=== PATIENT | male | born 1950 | race Caucasian/White ===

== ENCOUNTER 2021-02-07 17:04 | Observation (INO) | payer MEDICARE, SELFPAY ==
[2021-02-07] VITALS (12 sets, daily range): BP systolic 112–139; BP diastolic 59–83; PULSE 61–78; RESP 11–20; TEMP 36.7–37.1; O2SAT 96–100; BMI 21.7; BMI 22.1
--- NOTE | 2021-02-07 18:18 | ED.GENADULT ---
HPI - General Adult General Chief complaint: Abdominal Pain Stated complaint: states hernia Time Seen by Provider: 02/07/21 17:58 Source: patient Mode of arrival: Ambulatory Limitations: no limitations History of Present Illness HPI narrative: Patient is a 70-year-old male here for evaluation of what he states is a hernia that he cannot push back in. He has had hernia in his right inguinal area for upper to 25 years. He states that it is never caused him any problems. Last week he stated that it was protruding and was uncomfortable to the touch but he was able to push it back in after some effort. He had no further discomfort with that until this morning when it again was protruding and he was unable to push it back in. He now has generalized abdominal discomfort. No fevers. No vomiting. No problems urinating. No diarrhea. No constipation. Related Data Home Medications Medication Instructions Recorded Confirmed No Known Home Medications 02/08/21 02/08/21 Allergies Allergy/AdvReac Type Severity Reaction Status Date / Time No Known Drug Allergies Allergy Verified 02/07/21 18:42 Review of Systems Constitutional Constitutional: Denies fever(s) Gastrointestinal Gastrointestinal: Reports abdominal pain, Denies change in bowel habits, Denies nausea and Denies vomiting Genitourinary Genitourinary: Denies dysuria and Denies urinary hesitancy Genitourinary: Denies dysuria and Denies urinary hesitancy Musculoskeletal Musculoskeletal: Reports system reviewed and no additional complaints, except as documented Integumentary/Breasts Skin/Breast: Reports system reviewed and no additional complaints, except as documented Hematologic/Lymphatic On Anticoagulants: No Allergic/Immunologic Allergic/Immunologic: Reports system reviewed and no additional complaints, except as documented Patient History Medical History Patient denies medical problems Surgical History (Updated 02/07/21 @ 19:08 by Som He MD) History of tonsillectomy Social History household members: none Smoking Status: Never smoker Smoking Status: Never smoker alcohol intake frequency: holidays/special occasions only Substance Use Type: does not use Exam Initial Vital Signs Initial Vital Signs: Vital Signs Temperature 98.1 F 02/07/21 17:38 Pulse Rate 70 02/07/21 17:38 Respiratory Rate 17 02/07/21 17:38 Blood Pressure 128/77 02/07/21 17:38 Pulse Oximetry 98 02/07/21 17:38 Const General: cooperative and comfortable Limitations: mental status not altered HENMT Head: normal to inspection and normocephalic Resp Effort & Inspection: normal respiratory effort Auscultation: clear to auscultation bilaterally Cardio Rate: regular rate Rhythm: regular rhythm GI Inspection: non-distended Palpation: soft and tender (Diffuse tenderness) Other: Patient did have an obvious bulge in the right inguinal area that was tender to palpation Skin Lesions: no lesions Rashes: no rashes Extrem General: normal to inspection and capillary refill normal Psych Appearance: grossly normal and well kempt Course Orders Ordered: ED Orders 02/07/21 18:30 Basic Metabolic Panel Stat Complete Blood Count AUTO DIFF Stat 02/07/21 18:43 COVID19 - ADMIT (M[employer]MENT CAPTAIN swab/PCR) Stat Acetaminophen (Acetaminophen 325 Mg Tablet) 650 mg PO Q6HR PRN PRN Reason: Pain, Mild (1-3) Gabapentin (Gabapentin 300 Mg Capsule) 300 mg PO BID [facility] Last Admin: 02/08/21 01:16 Dose: 300 mg Documented by: LEE Lactated Ringer's (Lactated Ringers) 1,000 mls @ 80 mls/hr IV CONT [facility] Last Admin: 02/07/21 23:50 Dose: 80 mls/hr Documented by: NAHOMY Morphine Sulfate (Morphine 4 Mg/Ml Inj) 4 mg IV Q2H PRN PRN Reason: Pain, Severe (7-10) Naloxone HCl (Naloxone 0.4 Mg/Ml Vial) 0.2 mg IV Q2MIN PRN PRN Reason: Opiate Reversal Ondansetron HCl (Ondansetron 4 Mg/2 Ml Inj) 4 mg IV Q4HR PRN PRN Reason: Nausea And Vomiting Oxycodone HCl (Oxycodone Ir 5 Mg Tablet) 10 mg PO Q6HR PRN PRN Reason: Pain, Moderate (4-6) Discontinued Medications Acetaminophen (Acetaminophen 325 Mg Tablet) 975 mg PO NOW ONE Stop: 02/07/21 20:59 Last Admin: 02/08/21 01:15 Dose: Not Given Documented by: NAHOMY Bupivacaine HCl (Bupivacaine 0.5% (Pf) Vial) 30 ml INJ NOW ONE Stop: 02/07/21 21:10 Last Admin: 02/07/21 21:10 Dose: 30 ml Documented by: TAMMI Fentanyl (Fentanyl 100 Mcg/2 Ml Inj) 0 mcg IV Q5MIN PRN PRN Reason: Pain, Severe (7-10) Gabapentin (Gabapentin 300 Mg Capsule) 300 mg PO BID [facility] Last Admin: 02/08/21 01:16 Dose: Not Given Documented by: NAHOMY Hydromorphone HCl (Hydromorphone 2 Mg Inj) 0 mg IV Q5MIN PRN PRN Reason: Pain, Mild (1-3) Last Admin: 02/07/21 22:48 Dose: 0.25 mg Documented by: CHARLEEN Lactated Ringer's (Lactated Ringers) 1,000 mls @ 42 mls/hr IV CONT [facility] Last Infusion: 02/07/21 23:13 Dose: 42 mls/hr Documented by: Admin: 02/07/21 21:54 Dose: 42 mls/hr Documented by: Infusion: 02/07/21 21:54 Dose: 42 mls/hr Documented by: Admin: 02/07/21 20:07 Dose: 42 mls/hr Documented by: CHARLEEN Cefotetan Disodium 2 gm/ (Sodium Chloride) 100 mls @ 200 mls/hr IV NOW ONE Stop: 02/07/21 20:26 Last Infusion: 02/07/21 21:00 Dose: 0 mls/hr Documented by: Admin: 02/07/21 20:55 Dose: 200 mls/hr Documented by: BILL Lactated Ringer's (Lactated Ringers) 1,000 mls @ 120 mls/hr IV CONT [facility] Last Admin: 02/08/21 01:16 Dose: Not Given Documented by: NAHOMY Ondansetron HCl (Ondansetron 4 Mg/2 Ml Inj) 4 mg IV NOW PRN PRN Reason: Nausea And Vomiting Last Admin: 02/07/21 22:48 Dose: 4 mg Documented by: CHARLEEN Oxycodone HCl (Oxycodone Ir 5 Mg Tablet) 5 mg PO [place]OW PRN PRN Reason: Mild or moderate pain Last Admin: 02/07/21 23:12 Dose: 5 mg Documented by: Admin: 02/07/21 22:56 Dose: 5 mg Documented by: CHARLEEN Vital Signs Vital signs: Vital Signs - 8 hr 02/07/21 17:38 Temperature 98.1 F Pulse Rate 70 Respiratory Rate 17 Blood Pressure 128/77 Pulse Oximetry 98 Medical Decision Making Lab Data Lab results reviewed: Yes I reviewed the patient's lab results. Result diagrams: 02/07/21 18:30 02/07/21 18:30 Labs: Lab Results 02/07/21 02/07/21 Range/Units 18:30 18:30 WBC 8.2 (4.5-11.0) X10^3/uL RBC 4.50 (4.5-5.9) X10^6/uL Hgb 14.1 (13.5-17.5) g/dL Hct 42.1 (41-53) % MCV 93.5 (80-100) fL MCH 31.2 (26-34) PG MCHC 33.4 (30-36) % RDW 13.5 (11.6-14.8) % Plt Count 214 (150-400) X10^3/uL Neut % (Auto) 78.8 H (50-75) % Lymph % (Auto) 13.8 L (25-40) % [place] % (Auto) 6.7 (3-14) % Eos % (Auto) 0.3 L (2-4) % Baso % (Auto) 0.4 (0-2) % Neut # (Auto) 6500 (3516-9336) /uL Lymph # (Auto) 1100 (3714-4910) /uL [place] # (Auto) 600 (0-900) /uL Eos # (Auto) 0 (0-450) /uL Baso # (Auto) 0 (0-100) /uL Sodium 138 (137-145) mmol/L Potassium 4.7 (3.4-5.1) mmol/L Chloride 103 (98-107) mmol/L Carbon Dioxide 27 (22-32) mmol/L BUN 20 (9-20) mg/dL Creatinine 0.74 (0.66-1.25) mg/dL Estimated GFR > 60.0 (>60) mL/min BUN/Creatinine Ratio 27.0 H (6-22) Glucose 97 (80-110) mg/dL Calcium 9.1 (8.4-10.2) mg/dL MDM Narrative Medical decision making narrative: Patient does have an obvious right inguinal hernia initially was the size of a baseball and I was able to reduce it to about the size of a golf ball however was unable to reduce it any further than this. I did discuss the case with Dr. He on-call for General surgery who evaluated the patient in the emergency department and will take to the operating room for fixation. Discharge Plan Departure Patient Disposition: Admitted as Observation Clinical Impression: Incarcerated inguinal hernia, unilateral Admit Date/Time: 02/07/21 18:35 Admit Provider: Som He
[2021-02-07 18:42] LABS: Add Manual Diff / Slide Review NO; Basophils Absolute Auto 0 /uL (0-100); Basophils Percent Auto 0.4 % (0-2); Eosinophils Absolute Auto 0 /uL (0-450); Eosinophils Percent Auto 0.3 % (2-4); Hematocrit 42.1 % (41-53); Hemoglobin 14.1 g/dL (13.5-17.5); Lymphocytes Absolute Auto 1100 /uL (1100-4500); Lymphocytes Percent Auto 13.8 % (25-40); Mean Corpuscular HGB Conc 33.4 % (30-36); Mean Corpuscular Hemoglobin 31.2 PG (26-34); Mean Corpuscular Volume 93.5 fL (80-100); Monocytes Absolute Auto 600 /uL (0-900); Monocytes Percent Auto 6.7 % (3-14); Neutrophils Absolute Auto 6500 /uL (1500-7000); Neutrophils Percent Auto 78.8 % (50-75); Platelet Count 214 X10^3/uL (150-400); Red Cell Distribution Width 13.5 % (11.6-14.8); White Blood Cell Count 8.2 X10^3/uL (4.5-11.0)
[2021-02-07 18:59] LABS: Blood Urea Nitrogen 20 mg/dL (9-20); Calcium 9.1 mg/dL (8.4-10.2); Carbon Dioxide 27 mmol/L (22-32); Chloride 103 mmol/L (98-107); Estimated Glomerular Filt Rate > 60.0 mL/min (>60); Glucose 97 mg/dL (80-110); HEMOLYSIS < 15 (0-50); Potassium 4.7 mmol/L (3.4-5.1); Sodium 138 mmol/L (137-145)
--- NOTE | 2021-02-07 19:06 | P.HP_ITS ---
History of Present Illness History of Present Illness Date Patient Seen: 02/07/21 Time Patient Seen: 19:00 Chief complaint: states hernia Narrative: Patient is a gentleman who has a chronic right inguinal hernia. Last week it popped out and was quite painful after he lifted something heavy. He was able to reduce it however in his pain went away it popped out again today earlier and he has not been able to reduce it. He ultimately came to the emergency room and to physicians have been unable to reduce it. Is quite tender on attempts reduction. There is no overlying redness. His stomach feels upset and cramping. No vomiting. Last p.o. was meal was this morning. Patient History Surgical History (Updated 02/07/21 @ 19:08 by Som He MD) History of tonsillectomy Family & Social History Safety & Behavioral: Feels Safe in Current Yes Environment Been Physically Hurt or No Threatened By a Person Tobacco & Substance use: Smoking Status Never smoker alcohol intake frequency holiday/special occasion Substance Use Type does not use Meds Home Medications and Allergies Home Medications Medication Instructions Recorded Confirmed Type SULFAMETHOX/TRIMETH 1 tab PO #0 02/06/07 History (SULFAMETHOX/TRIMETH SS) Allergies Allergy/AdvReac Type Severity Reaction Status Date / Time No Known Drug Allergies Allergy Verified 02/07/21 18:42 Review of Systems Review of Systems Narrative: Patient denies any visual difficulties double vision no cough cold. He had asthma as a child. No heart problems or chest pain. No black or bloody bowel movements. Last colonoscopy in the last few years. Fairly recent. No dysuria or hematuria. No seizures or blackouts. No anxiety or depression. No unusual bruising or bleeding. He does not see a doctor regularly but it considers himself fairly healthy. Exam Vital Signs (past 8 hours): - 02/07/21 17:38 Temperature 98.1 F Pulse Rate 70 Respiratory Rate 17 Blood Pressure 128/77 Pulse Oximetry 98 Oxygen Delivery Method Room Air Narrative Exam Narrative: Cooperative thin gentleman in no apparent distress. His eyes are nonicteric. Oral mucosa is pink moist. Teeth are intact. Dental work noted. No nodes in the neck supraclavicular areas. Trachea is midline mobile. Lungs are clear to auscultation without rales or rhonchi. Equal percussion. Heart regular rate and rhythm without murmur gallop. No heave lift or thrill. Abdomen is scaphoid soft nontender except in the right groin. Patient has an incarcerated right inguinal hernia. I cannot get it to reduce any further than it already has been reduced to the size of about a golf ball. It is tender with an attempt. There is no overlying redness. The testicle is nontender. Patient is alert and oriented. Objective Labs Result Diagrams: 02/07/21 18:30 02/07/21 18:30 Labs: Laboratory Results - last 24 hr 02/07/21 02/07/21 18:30 18:30 WBC 8.2 RBC 4.50 Hgb 14.1 Hct 42.1 MCV 93.5 MCH 31.2 MCHC 33.4 RDW 13.5 Plt Count 214 Neut % (Auto) 78.8 H Lymph % (Auto) 13.8 L [place] % (Auto) 6.7 Eos % (Auto) 0.3 L Baso % (Auto) 0.4 Neut # (Auto) 6500 Lymph # (Auto) 1100 [place] # (Auto) 600 Eos # (Auto) 0 Baso # (Auto) 0 Sodium 138 Potassium 4.7 Chloride 103 Carbon Dioxide 27 BUN 20 Creatinine 0.74 Estimated GFR > 60.0 BUN/Creatinine Ratio 27.0 H Glucose 97 Calcium 9.1 Assessment & Plan Assessment & Plan narrative: Patient is a gentleman with a right inguinal hernia that is incarcerated and quite tender. I am concerned about ischemic or strangulated contents. I have discussed the operation with him. Risks of bleeding infection injury to nerves vas deferens blood supply the testicle I and the potential need to resect bowel were all discussed. he appears to understand wishes to proceed
[2021-02-07 19:40] LABS: COVID19 - ADMIT (NP swab/PCR) Negative (Negative)
--- NOTE | 2021-02-07 19:50 | PC.NURSE ---
Report given to CHEMICAL COMPOUNDER and Acute Care RN.
[2021-02-07] MEDS: LACTATED RINGERS 1,000 ML 42 ML IV ×2 (20:07→21:54)
--- NOTE | 2021-02-07 20:26 | PM.PREOP ---
Pre-operative Note COVID-19 COVID-19 status: Negative Result date/Date tested (Pos, Neg/Pending): 02/07/21 Interval Note History & Physical reviewed/Exam performed by Physician: Yes Changes to H&P: No
[2021-02-07] MEDS: CEFOTETAN 2 GM in SODIUM CHLORIDE 0.9% 100 ML 200 ML IV (20:55)
--- NOTE | 2021-02-07 21:02 | SUR.OPER ---
Supine on padded OR bed, head on pillow, arms secured on padded arm boards at <90 degrees abduction, legs uncrossed, safety belt at thigh, tape over blanket over lower legs.
[2021-02-07] MEDS: BUPIVACAINE 0.5% (PF) VIAL 30 ML INJ (21:10)
--- NOTE | 2021-02-07 22:41 | PM.OP.1 ---
Operative Date/Time/Diagnoses Date of procedure: 02/07/21 Time of procedure: 22:41 Pre-op diagnosis: Incarcerated right inguinal hernia Post-op diagnosis: same (Small bowel incarcerated in the hernia. Appeared to be viable.) Procedure & Clinicians Procedure: Repair using modified shoulder ice technique Same procedure as scheduled: Yes Indications: Patient with acutely incarcerated hernia at risk of strangulation. Surgeon: Som He Click Yes if Unassisted: Yes Anesthesia Type: General Operative Notes Findings: Small bowel trapped in a hernia sac with a tight neck. Initially a bit dusky but once the tight ring was relaxed the bowel normalized in color. Closure Type: primary Specimen(s): none sent Prosthetic devices, grafts, tissues, transplants, or devices: None Estimated Blood Loss (mL): 20 Blood products transfused: none Procedure in detail: The patient was placed supine on the operating room table and underwent general LMA anesthesia. He was prepped and draped in the usual fashion. A transverse incision was made overlying the right internal ring and carried down to the level of the external oblique. Because of the distortion of the hernia the cord structures were actually below the incision. I opened the cord cremaster and dissected through what appeared to be the hernia sac. I readily identified slightly discolored small bowel. I attempted to reduce it but the sac and a very tight neck. I dissected along the sac until I found the constriction and incised it. The bowel color changed to more normal and appeared to be viable. I was able to reduce the small intestine at that point. I lifted the cord structures off of the floor and placed a Ata around them. The external oblique was then opened parallel with its fibers through the external ring. The sac was from surrounding structures and dissected proximally. I transected it leaving a solid amount of sac remaining on the cord to prevent injury to the vascular supply of the testicle. Once I dissected the sac clear of structures I ligated it with 2-0 silk at the level the deep epigastric vessels. I transected the sac distal to the ties and removed the sac. I love the stump to retract after injecting a small amount of local just below the ties. The cremaster was then closed with a running 3-0 Vicryl suture. The floor was examined and was found to be weekend in its center but intact laterally and medially. I decided to perform a modified shoulder ice repair. The floor was opened from near the internal ring to near the pubic tubercle. A 2 0 Prolene suture was placed at the pubic tubercle and tied. This suture was then run incorporating the ileopubic tract to the underside of the cut floor medially. This suture was run until a new internal ring was formed which was snug but not tight against the cord structures. The same suture was then run back to the pubic tubercle suturing the edge of the inguinal ligament and lateral ileopubic tract to the cut edge of the medial floor( essentially to the cut edge of thetransversalis.) The repair appeared to be strong and the in terminal ring did not strangulate the cord structures.. The external oblique was closed with a running 3 0 Vicryl. The subcu was closed with interrupted 3 0 Vicryl. The skin was closed with a running 4 0 Vicryl subcuticular stitch and Steri-Strips. Dressing was applied, the patient was awakened, and the patient was taken to the recovery area in good condition. Complications: none Post-operative Condition: stable Disposition: PACU
[2021-02-07] MEDS: ONDANSETRON 4 MG/2 ML INJ IV (22:48)
[2021-02-07] MEDS: HYDROMORPHONE 2 MG INJ IV (22:48)
[2021-02-07] MEDS: OXYCODONE IR 5 MG TABLET PO ×2 (22:56→23:12)
--- NOTE | 2021-02-07 23:45 | PC.ADMIT ---
[address] [place] [address] Admission Note: Patient arrived to the unit at 2327 from PACU via bed. Patient is A&O and denies pain at this time. Patient's brother was in room with him. Patient was oriented to room, call light, educated to call when needing to get out of bed, and call light was left within reach. The patient,Shad Villanueva,70 y/o, was given written information regarding hospital policies, unit procedures and contact persons. Patient's smoking status: Never smoker. Vital Signs - 8 hr 02/07/21 18:30 02/07/21 19:49 02/07/21 20:03 Temperature 98.1 F Pulse Rate 68 72 78 Respiratory Rate 17 18 20 Blood Pressure 127/81 132/83 138/77 Pulse Oximetry 97 99 96 02/07/21 22:34 02/07/21 22:39 02/07/21 22:49 Temperature 98.4 F Pulse Rate 64 61 71 Respiratory Rate 14 15 12 Blood Pressure 112/59 L 119/71 115/70 Pulse Oximetry 100 99 97 02/07/21 22:55 02/07/21 22:59 02/07/21 23:04 Temperature Pulse Rate 72 73 72 Respiratory Rate 11 L 17 16 Blood Pressure 125/68 128/64 122/78 Pulse Oximetry 98 96 97 02/07/21 23:10 Temperature Pulse Rate 72 Respiratory Rate 15 Blood Pressure 132/82 Pulse Oximetry 97
[2021-02-07] MEDS: LACTATED RINGERS 1,000 ML 80 ML IV (23:50)
[2021-02-08 00:10] VITALS: BP 126/73; PULSE 81; RESP 16; TEMP 37.1; O2SAT 94
[2021-02-08 00:40] VITALS: BP 122/71; PULSE 79; RESP 16; TEMP 37.3; O2SAT 96
[2021-02-08] MEDS: GABAPENTIN 300 MG CAPSULE PO ×2 (01:16→08:48)
[2021-02-08 01:45] VITALS: BP 123/73; PULSE 74; RESP 16; TEMP 37; O2SAT 96
[2021-02-08 02:45] VITALS: BP 121/68; PULSE 79; RESP 16; TEMP 37; O2SAT 96
[2021-02-08 05:33] LABS: Add Manual Diff / Slide Review NO; Basophils Absolute Auto 0 /uL (0-100); Basophils Percent Auto 0.2 % (0-2); Eosinophils Absolute Auto 0 /uL (0-450); Hemoglobin 13.3 g/dL (13.5-17.5); Lymphocytes Absolute Auto 600 /uL (1100-4500); Lymphocytes Percent Auto 6.7 % (25-40); Mean Corpuscular HGB Conc 33.3 % (30-36); Mean Corpuscular Hemoglobin 30.9 PG (26-34); Mean Corpuscular Volume 92.9 fL (80-100); Monocytes Absolute Auto 300 /uL (0-900); Monocytes Percent Auto 3.6 % (3-14); Neutrophils Absolute Auto 7500 /uL (1500-7000); Neutrophils Percent Auto 89.5 % (50-75); Platelet Count 201 X10^3/uL (150-400); Red Blood Cell Count 4.31 X10^6/uL (4.5-5.9); Red Cell Distribution Width 13.5 % (11.6-14.8); White Blood Cell Count 8.4 X10^3/uL (4.5-11.0)
[2021-02-08 07:00] VITALS: BP 120/65; PULSE 69; RESP 17; TEMP 36.8; O2SAT 96
--- NOTE | 2021-02-08 10:37 | PM.DS.1 ---
History of Present Illness History of Present Illness Chief complaint: states hernia Narrative: Patient is a gentleman who has a chronic right inguinal hernia. Last week it popped out and was quite painful after he lifted something heavy. He was able to reduce it however in his pain went away it popped out again today earlier and he has not been able to reduce it. He ultimately came to the emergency room and to physicians have been unable to reduce it. Is quite tender on attempts reduction. There is no overlying redness. His stomach feels upset and cramping. No vomiting. Last p.o. meal was this morning. Discharge Providers Provider Date of admission: 02/07/21 18:35 Discharge Date: 02/08/21 Consults: 02/07/21 23:39 Consult to Discharge Planning Routine Comment: Discharge provider: Som eH MD Summary Hospital Course Discharge Diagnosis: Acute bowel obstruction secondary to incarcerated right inguinal hernia containing small bowel. Hospital Course: Patient was emergently taken to the operating room when the hernia could not be completely reduced. He was found to have a knuckle small bowel that was quite difficult to reduce but able to be done ultimately. See op report. He will underwent a non mesh repair of his hernia. He is discharged with no abdominal pain and only incisional pain follow-up in the office. Discharged on pain medication. Status at Discharge Cognitive/behavioral status at discharge: oriented Functional status at discharge: independent ambulation Overall status at discharge: patient is progressing back to baseline Time Spent with Patient Time spent: Less than 30 minutes Exam Vital Signs (past 8 hours): - 02/08/21 02:45 02/08/21 07:00 Temperature 98.6 F 98.2 F Pulse Rate 79 69 Respiratory Rate 16 17 Blood Pressure 121/68 120/65 Pulse Oximetry 96 96 Oxygen Delivery Method Room Air Oxygen Flow Rate 0 Objective Labs Result Diagrams: 02/08/21 05:10 02/07/21 18:30 Labs: Laboratory Results - last 24 hr 02/07/21 02/07/21 02/07/21 18:30 18:30 18:43 WBC 8.2 RBC 4.50 Hgb 14.1 Hct 42.1 MCV 93.5 MCH 31.2 MCHC 33.4 RDW 13.5 Plt Count 214 Neut % (Auto) 78.8 H Lymph % (Auto) 13.8 L [place] % (Auto) 6.7 Eos % (Auto) 0.3 L Baso % (Auto) 0.4 Neut # (Auto) 6500 Lymph # (Auto) 1100 [place] # (Auto) 600 Eos # (Auto) 0 Baso # (Auto) 0 Sodium 138 Potassium 4.7 Chloride 103 Carbon Dioxide 27 BUN 20 Creatinine 0.74 Estimated GFR > 60.0 BUN/Creatinine Ratio 27.0 H Glucose 97 Calcium 9.1 SARS-CoV-2 (PCR) Negative 02/08/21 05:10 WBC 8.4 RBC 4.31 L Hgb 13.3 L Hct 40.0 L MCV 92.9 MCH 30.9 MCHC 33.3 RDW 13.5 Plt Count 201 Neut % (Auto) 89.5 H Lymph % (Auto) 6.7 L [place] % (Auto) 3.6 Eos % (Auto) 0.0 L Baso % (Auto) 0.2 Neut # (Auto) 7500 H Lymph # (Auto) 600 L [place] # (Auto) 300 Eos # (Auto) 0 Baso # (Auto) 0 Sodium Potassium Chloride Carbon Dioxide BUN Creatinine Estimated GFR BUN/Creatinine Ratio Glucose Calcium SARS-CoV-2 (PCR) [facility] Medical History Patient denies medical problems Surgical History (Updated 02/07/21 @ 19:08 by Som He MD) History of tonsillectomy Social History household members: none Smoking Status: Never smoker Discharge Plan Discharge Plan Patient Disposition: Home Provider Discharge Comment: Your operation went well. I did not use mesh to repair your hernia. The pain medicine I have prescribed may constipate you. If it does use a laxative like milk of magnesia. You may use ibuprofen or Naprosyn in addition to the medication I prescribed. That medication contains Tylenol (acetaminophen). Do not use Tylenol unless you have stopped using the prescription medication as the dose of Tylenol will be too high and could injury your liver. Discharge orders & Medications Prescriptions: New oxycodone-acetaminophen [Percocet] 5-325 mg tablet See Rx Instructions .ROUTE .COMPLEX PRN (Reason: painful procedure) Qty: 14 RF: 0 No Action No Known Home Medications RF: 0 Medication counseling provided by Pharmacist: No Follow up/Referrals: Som He MD [Physician] - 2 Weeks (Please call my office on Wednesday after 9:00 a.m. and make an appointment to see me in about 2 weeks. If you need to reach a doctor call our office. If it is after hours listen to the message and you will be given instructions how to page the doctor on-call for our practice. Have a pen and paper ready to write the telephone number down) Diet/Activity/Treatments Diet: Diet as Tolerated Activity: Do not lift over 10 lb or strain for the next 6 weeks. You may walk. No other form of exercise. No pool or tub for at least [address] your pain-free off medication. Skin/Wound/Dressing Care Report to your healthcare provider any signs of infection, such as:: increased pain, unusual drainage and unusual redness Dressing: You may remove the dressing tomorrow (Wednesday) and shower. Leave the tape under the [place] alone. Do not remove it unless it irritates your skin. Soap and water running over it will not hurt your incision or the tape. Discharge Data Attending Provider: Som He
--- NOTE | 2021-02-08 11:31 | CM.DANOTE ---
Discharge Planning/Care Management DCP: assessment: case received, EMR reviewed, dc order noted. Went to room to meet with pt. He is found up, dressed and going over d/c paperwork with RN caring for him today. Pt is a 70 year old male who admitted last night to [facility], was taken to surgery to hernia repair and has been ok'd for d/c this morning. His support person (? brother Earnest) is in the room and will be driving him home. [facility] in process of clarifying pt's insurance information...no notes from them are yet available. CM Discharge Assessment Start: 02/08/21 11:30 Freq: Status: Active Protocol: Document 02/08/21 11:30 ITV (Rec: 02/08/21 11:31 ITV [id number]) Discharge Planning Assessment Advance Directives? No History Provided By Medical Record Prior Living Arrangements Mobile home Household Members none Independent with ADL's Yes Is patient alert and oriented? Yes
--- NOTE | 2021-02-08 12:07 | PC.NURSE ---
Pt DI given to pt and his brotherm, discussed- activity, medications, diet, f/u appts, worsening symptoms, reasons to seek medical attention. All questions answered. Pt dressed and packed belongings independently. IV's removed, intact, tolerated well. Prescriptions electronically sent to Tom. Pt left via w/c to brother's POV accompanied by RESEARCH CHIEF ENGINEER.
== END 2021-02-08 11:50 | disposition home or self-care (01) ==
LOC: ED 18:35 → AC 18:36
PROVIDERS: Admitting Provider Specialist; Emergency Provider Emergency Medicine; Referring Provider Emergency Medicine; Visit Provider Specialist
PROC: (CPT 49507; principal; 2021-02-07 17:45)
DX: R10.9 Unspecified abdominal pain (principal); Z20.822 Contact with and (suspected) exposure to COVID-19; K40.30 Unilateral inguinal hernia, with obstruction, without gangrene, not specified as recurrent
CPT/HCPCS: 49507; 36415; 80048; 85025; 87635; 96361; 96374; 96375; 99220; 99283; C9803; G0378; J0330; J1100; J1170; J2405; J2704; J3010

== ENCOUNTER 2024-04-23 20:53 | Emergency (ER) | payer MEDICARE, BC, SELFPAY ==
[2021-02-07 23:27] VITALS: BMI 22.1
--- NOTE | 2024-04-23 | DI.CT.S_ITS ---
PROCEDURE: CT ANGIO HEAD AND NECK INDICATIONS: STROKE SYMPTOMS TECHNIQUE: After the administration of intravenous contrast, 1 mm thick sections acquired from the aortic arch through the [place]. 3-dimensional qbrwtop-okwokwppz-sopwvzegtd (MIP) and/or volume rendering reformats were acquired of the central intracranial vasculature and neck separately. For radiation dose reduction, the following was used: automated exposure control, adjustment of mA and/or kV according to patient size. COMPARISON: [facility], CR, XR CHEST 1V, 04/23/2024, 21:27. [facility], CT, CT STROKE, 04/23/2024, 21:12. FINDINGS: Image quality: There is artifact associated with the metallic hardware. Artifact from the metallic hardware is reduced by metal reconstruction algorithm. There is streak artifact seen through the level of the shoulders. BRAIN: CSF spaces: Ventricles are normal in size and shape. Basal cisterns are patent. No extra-axial fluid collections. Brain: No significant abnormality of the brain can be seen. Skull and face: Calvarium and facial bones appear intact, without suspicious lesions. Orbits appear normal. Sinuses: Sinuses and mastoids are clear. HEAD CT ANGIOGRAPHY: Anterior circulation: Intracranial internal carotid arteries are normal in size and flow. The flow within the paired anterior cerebral arteries is normal and symmetric. The flow within the middle cerebral arteries is normal and symmetric. The anterior communicating artery is seen. No aneurysms are seen. Posterior circulation: Visualized portions of the vertebral arteries demonstrate normal caliber, and join to form a normal appearing basilar artery. Flow within the posterior cerebral arteries is normal and symmetric. No aneurysms are seen. NECK CT ANGIOGRAPHY: Carotid system: The great vessels demonstrate a conventional anatomy as they arise from the aortic arch. The origins of the common carotid arteries appear patent. The common carotid arteries demonstrate normal caliber and courses. The bifurcation regions are within normal limits, without focal stenosis. Within the right internal carotid artery, there is a long segment carotid dissection seen, as on series 7 images 114-119. The left internal carotid artery is within normal limits. Posterior circulation: The origins of the vertebral arteries both appear widely patent. The more superior extracranial portions of both vertebral arteries also demonstrate normal courses and calibers. The left vertebral artery is dominant to the right. Soft tissues: Visualized neck soft tissues demonstrate no suspicious abnormalities. Bones: No suspicious bony lesions. Visualized cervical spine appears normally aligned. Xjrl-jy-iycjotgu cervical spine degenerative change is seen. IMPRESSION: No significant intracranial arterial abnormality is seen. 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 Please correlate with known patient history and any prior outside imaging. If there is strong clinical suspicion for an acute stroke, please consider a brain MRI for further evaluation, as it is more sensitive (assuming that there is no contraindication to MRI). Any quantitative measurements of stenosis were performed using NASCET criteria. Dictated by: Neto Pitts M.D. on 04/23/2024 at 20:57 Approved by: Neto Pitts M.D. on 04/23/2024 at 21:01
[2024-04-23 21:01] VITALS: BP 145/81; PULSE 78; RESP 16; TEMP 36.1; O2SAT 98; BMI 21.7
--- NOTE | 2024-04-23 21:08 | DI.CT.S_ITS ---
PROCEDURE: CT STROKE INDICATIONS: Positive BE-FAST, Stroke symptoms TECHNIQUE: Noncontrast 4.5 mm thick angled axial sections acquired from the foramen magnum to the vertex, with coronal reformats. For radiation dose reduction, the following was used: automated exposure control, adjustment of mA and/or kV according to patient size. COMPARISON: [facility], CT, CT ANGIO HEAD AND NECK, 04/23/2024, 21:15. FINDINGS: Image quality: Mild streak artifact can be seen through the skull base. CSF spaces: Basal cisterns are patent. No extra-axial fluid collections. The ventricles are symmetric in size and shape. Brain: No intracranial bleeds or masses. There is cerebral volume loss for age, with resultant ventricular and sulcal prominence. There are periventricular and deep white matter chronic small vessel ischemic changes. There is intracranial internal carotid artery atherosclerosis. Skull and face: Calvarium and visualized facial bones appear intact, without suspicious lesions. Sinuses: Visualized sinuses and mastoids are clear. IMPRESSION: No acute intracranial pathology. No acute intracranial hemorrhage is seen. Note: Dr. Stafford was not available to discuss this case at the time of this dictation. Case discussed by telephone with nurse Annamaria at 9:34 p.m. [place] time on April 23, 2024. She will discuss the case with Dr. Stafford. This study fulfills neurological imaging criteria for inclusion or exclusion of acute stroke therapies based on available published neurological guidelines. Dictated by: Neto Pitts M.D. on 04/23/2024 at 20:33 Approved by: Neto Pitts M.D. on 04/23/2024 at 20:39
--- NOTE | 2024-04-23 21:08 | DI.RAD.S_ITS ---
PROCEDURE: XR CHEST 1V INDICATIONS: Possible stroke TECHNIQUE: One view of the chest was acquired. COMPARISON: [facility], CT, CT STROKE, 04/23/2024, 21:12. [facility], CT, CT ANGIO HEAD AND NECK, 04/23/2024, 21:15. FINDINGS: Surgical changes and devices: None. Lungs and pleura: Lungs are clear. No pleural effusions or pneumothorax. Mediastinum: The cardiac contours are within normal limits. The aorta demonstrates calcification and tortuosity. There is a likely moderate pericardial effusion. Bones and chest wall: No suspicious bony lesions. There is a remote left clavicle fracture. Mac row degenerative Overlying soft tissues appear unremarkable. IMPRESSION: Clear lungs. Additional findings: Remote left clavicle fracture Likely moderate hiatal hernia Dictated by: Neto Pitts M.D. on 04/23/2024 at 20:57 Approved by: Neto Pitts M.D. on 04/23/2024 at 20:57
[2024-04-23 21:24] LABS: Add Manual Diff / Slide Review NO; Basophils Absolute Auto 0 /uL (0-100); Basophils Percent Auto 0.6 % (0-2); Eosinophils Absolute Auto 100 /uL (0-450); Eosinophils Percent Auto 1.9 % (2-4); Hematocrit 43.2 % (41-53); Hemoglobin 14.7 g/dL (13.5-17.5); Lymphocytes Absolute Auto 2100 /uL (1100-4500); Lymphocytes Percent Auto 29.8 % (25-40); Mean Corpuscular HGB Conc 34.1 % (30-36); Mean Corpuscular Hemoglobin 31.6 PG (26-34); Mean Corpuscular Volume 92.8 fL (80-100); Monocytes Absolute Auto 600 /uL (0-900); Monocytes Percent Auto 8.5 % (3-14); Neutrophils Absolute Auto 4200 /uL (1500-7000); Neutrophils Percent Auto 59.2 % (50-75); Platelet Count 218 X10^3/uL (150-400); Red Blood Cell Count 4.65 X10^6/uL (4.5-5.9); Red Cell Distribution Width 13.8 % (11.6-14.8); White Blood Cell Count 7.1 X10^3/uL (4.5-11.0)
[2024-04-23 21:31] LABS: INR 1.1 (0.9-1.3); Prothrombin Time 12.3 SECONDS (9.4-12.5)
[2024-04-23 21:32] VITALS: BP 138/79; PULSE 75; RESP 12; O2SAT 98
[2024-04-23 21:39] LABS: PTT Partial Thromboplastin Tim 30 SECONDS (25.1-36.5)
--- NOTE | 2024-04-23 21:49 | PC.NURSE ---
Pt awake and alert. Moves all extremities. Has field cut to left eye lower quadrant. Can not see peripherally. Peripherals in all other locations WNL. Also says that the right side of his head is cold and his nose is cold. Feels really good to press on the right side of face and skull.
[2024-04-23 21:56] LABS: Alanine Aminotransferase 19 IU/L (<50); Albumin 4.3 g/dL (3.5-5.0); Albumin Globulin Ratio 1.4 (1.0-2.8); Alkaline Phosphatase 57 U/L (38-126); Aspartate Aminotransferase 32 IU/L (17-59); BUN Creatinine Ratio 31.8 (6-22); Bilirubin Total 0.7 mg/dL (0.2-1.3); Blood Urea Nitrogen 28 mg/dL (9-20); Calcium 9.4 mg/dL (8.4-10.2); Carbon Dioxide 30 mmol/L (22-32); Chloride 104 mmol/L (98-107); Creatine Kinase 81 U/L (55-170); Estimated Glomerular Filt Rate > 60 mL/min (>60); Glucose 94 mg/dL (80-110); HEMOLYSIS < 15 (0-50); Magnesium 2.1 mg/dL (1.6-2.3); Potassium 4.6 mmol/L (3.4-5.1); Sodium 141 mmol/L (137-145); Total Protein 7.3 g/dL (6.3-8.2)
[2024-04-23 22:00] VITALS: BP 129/69; PULSE 73; RESP 15; O2SAT 96
[2024-04-23 22:06] LABS: Troponin I < 0.012 ng/mL (0.01-0.034)
[2024-04-23] MEDS: ACETAMINOPHEN IV 1,000 MG/100 ML VIAL 400 MG IV (22:11)
--- NOTE | 2024-04-23 22:18 | ED.NEUROSD ---
HPI - Neuro Symptoms/Deficit General Chief Complaint: Neuro Symptoms/Deficit Stated Complaint: headached, vision floaters and lights Time Seen by Provider: 04/23/24 21:22 Source: patient Mode of arrival: Ambulatory History of Present Illness HPI Narrative: 73-year-old male with no reported past medical history presents with 2 days of right-sided headache and left-sided visual disturbance. Patient states that as far back as when he was in his 20s he would occasionally get a static-like haze to his vision occasionally, but no cause was ever found. Patient states that when he woke up yesterday he noticed that the peripheral vision in his left eye only seemed to be reduced with the static like changes present. He states that in the past it would go away on its own, but it seems to be persistent, and after looking his symptoms up online he decided to come in for evaluation. Headache is in the right parietal area, throbbing. On Anticoagulants: No Related Data Previous Rx's Medication Instructions Recorded aspirin 81 mg tablet,delayed 81 mg PO DAILY #30 tabs 04/25/24 release atorvastatin 20 mg tablet 80 mg (4 x 20 mg) PO BEDTIME #30 04/25/24 tabs clopidogrel 75 mg tablet 75 mg PO DAILY #21 tabs 04/25/24 metoprolol succinate 25 mg 12.5 mg (1/2 x 25 mg) PO DAILY #30 04/25/24 tablet,extended release 24 hr tabs sacubitril 24 mg-valsartan 26 mg 1 tab PO BID #60 tabs 04/25/24 tablet (Entresto) Allergies Allergy/AdvReac Type Severity Reaction Status Date / Time No Known Drug Allergies Allergy Verified 04/24/24 11:39 Review of Systems Hematologic/Lymphatic On Anticoagulants: No Patient History Medical History Patient denies medical problems Surgical History History of tonsillectomy Social History household members: none Smoking Status: Never smoker Smoking Status: Never smoker alcohol intake frequency: holidays/special occasions only Substance Use Type: does not use Exam Initial Vital Signs Initial Vital Signs: Vital Signs Temperature 97.0 F L 04/23/24 21:01 Pulse Rate 78 04/23/24 21:01 Respiratory Rate 16 04/23/24 21:01 Blood Pressure 145/81 H 04/23/24 21:01 Pulse Oximetry 98 04/23/24 21:01 Oxygen Delivery Method Room Air 04/23/24 21:01 Const: Awake, alert, no acute distress, nontoxic appearing HEENT: TM normal bilaterally, PERRL, EOMI Cardiac: regular rate, regular rhythm RESP: unlabored, clear bilaterally, no wheezing Skin: Warm, Dry, intact, no rashes Neuro: AO x3, CN II-XII grossly intact, moves all extremities, L eye peripheral vision decreased. R eye peripheral vision normal per patient Course Orders Ordered: Discontinued Medications Acetaminophen (Ofirmev) 1,000 mg in 100 mls @ 400 mls/hr IV NOW ONE Stop: 04/23/24 22:20 Last Infusion: 04/23/24 22:33 Dose: Infused Documented By: Admin: 04/23/24 22:11 Dose: 400 mls/hr Documented By: Ketorolac Tromethamine (Ketorolac 30 Mg/Ml Vial) 15 mg IV NOW ONE Stop: 04/23/24 22:36 Last Admin: 04/23/24 22:41 Dose: 15 mg Documented By: Ondansetron HCl (Ondansetron 4 Mg/2 Ml Inj) 4 mg IV NOW PRN PRN Reason: Nausea And Vomiting Ondansetron HCl (Ondansetron 4 Mg Odt) 4 mg SL NOW PRN PRN Reason: Nausea And Vomiting Vital Signs Vital signs: Vital Signs - 8 hr 04/23/24 21:01 04/23/24 21:32 04/23/24 21:32 Temperature 97.0 F L Pulse Rate 78 75 Respiratory Rate 16 12 Blood Pressure 145/81 H 138/79 Pulse Oximetry 98 98 Oxygen Delivery Method Room Air 04/23/24 22:00 04/23/24 22:00 04/23/24 22:30 Temperature Pulse Rate 73 77 Respiratory Rate 15 18 Blood Pressure 129/69 121/66 Pulse Oximetry 96 96 Oxygen Delivery Method Room Air 04/23/24 22:30 04/23/24 23:00 04/23/24 23:00 Temperature Pulse Rate 68 71 Respiratory Rate 15 14 Blood Pressure 122/66 Pulse Oximetry 95 95 Oxygen Delivery Method MDM - Neuro Symptoms/Deficit Lab Data 04/23/24 21:13 04/23/24 21:13 Labs: Lab Results 04/23/24 Range/Units 21:13 WBC 7.1 (4.5-11.0) X10^3/uL RBC 4.65 (4.5-5.9) X10^6/uL Hgb 14.7 (13.5-17.5) g/dL Hct 43.2 (41-53) % MCV 92.8 (80-100) fL MCH 31.6 (26-34) PG MCHC 34.1 (30-36) % RDW 13.8 (11.6-14.8) % Plt Count 218 (150-400) X10^3/uL Neut % (Auto) 59.2 (50-75) % Lymph % (Auto) 29.8 (25-40) % [place] % (Auto) 8.5 (3-14) % Eos % (Auto) 1.9 L (2-4) % Baso % (Auto) 0.6 (0-2) % Neut # (Auto) 4200 (5829-9175) /uL Lymph # (Auto) 2100 (7604-1274) /uL [place] # (Auto) 600 (0-900) /uL Eos # (Auto) 100 (0-450) /uL Baso # (Auto) 0 (0-100) /uL PT 12.3 (9.4-12.5) SECONDS INR 1.1 (0.9-1.3) APTT 30 (25.1-36.5) SECONDS Sodium 141 (137-145) mmol/L Potassium 4.6 (3.4-5.1) mmol/L Chloride 104 (98-107) mmol/L Carbon Dioxide 30 (22-32) mmol/L BUN 28 H (9-20) mg/dL Creatinine 0.88 (0.66-1.25) mg/dL Estimated GFR > 60 (>60) mL/min BUN/Creatinine Ratio 31.8 H (6-22) Glucose 94 (80-110) mg/dL Calcium 9.4 (8.4-10.2) mg/dL Magnesium 2.1 (1.6-2.3) mg/dL Total Bilirubin 0.7 (0.2-1.3) mg/dL AST 32 (17-59) IU/L ALT 19 (<50) IU/L Alkaline Phosphatase 57 (38-126) U/L Total Creatine Kinase 81 (55-170) U/L Troponin I < 0.012 (0.01-0.034) ng/mL Total Protein 7.3 (6.3-8.2) g/dL Albumin 4.3 (3.5-5.0) g/dL Globulin 3.0 (1.7-4.1) g/dL Albumin/Globulin Ratio 1.4 (1.0-2.8) MDM Narrative Medical decision making narrative: Well-appearing patient with nearly 24 hours of symptoms. Patient is well outside of range for any interventions such as tPA or thrombectomy. Only deficit is left-sided peripheral vision loss. No weakness, sensation loss, speech deficits on exam. CT brain negative for acute findings. No significant change in symptoms after medication administration for headache. Offered admission for MRI and full stroke evaluation, however patient declined, stating that he did not want to stay in the hospital and would prefer to follow up with an eye doctor. Patient recommended to take daily asa. Stroke Core Measures Exclusion Criteria TPA in CVA: Symptom Onset >3 or 4.5 Hours Discharge Plan Departure Patient Disposition: Home Clinical Impression: Abnormal peripheral vision of left eye, Headache Instructions: DI for Visual Field Disturbances Activity Restrictions/Additional Instructions: Your brain CT and CT of the vessels of your head and neck did not show any blockages, masses, or other abnormalities. Your blood work today was reassuring. I do not know the cause of your one-sided peripheral vision loss, but I highly recommend that you follow up with an eye doctor. A referral number has been provided. If you notice worsening vision problems, numbness, weakness, speech difficulties, facial droop, or any other concerning symptoms please return to the emergency department for evaluation. Prescriptions: No Action atorvastatin 20 mg Tablet 80 mg PO BEDTIME Qty: 30 11RF clopidogrel 75 mg Tablet 75 mg PO DAILY Qty: 21 0RF aspirin 81 mg Tablet,Delayed Release (Dr/Ec) 81 mg PO DAILY Qty: 30 11RF metoprolol succinate 25 mg tablet extended release 24 hr 12.5 mg PO DAILY Qty: 30 3RF Entresto 24-26 mg tablet 1 tab PO BID Qty: 60 2RF Referrals: Saundra Stoner MD [Physician] - Miscellaneous,Doctor, [Primary Care Provider] - Stand Alone Forms: Patient Portal/API
[2024-04-23 22:30] VITALS: BP 121/66; PULSE 68; PULSE 77; RESP 15; RESP 18; O2SAT 95; O2SAT 96
[2024-04-23] MEDS: KETOROLAC 30 MG/ML VIAL 15 MG IV (22:41)
[2024-04-23 23:00] VITALS: BP 122/66; PULSE 71; RESP 14; O2SAT 95
[2024-04-23 23:47] VITALS: BP 115/78; PULSE 74; RESP 18; TEMP 36.8; O2SAT 98
== END 2024-04-23 23:48 | disposition home or self-care (01) ==
PROVIDERS: Emergency Provider Emergency Medicine
DX: H53.452 Other localized visual field defect, left eye (principal); R51.9 Headache, unspecified; R29.818 Other symptoms and signs involving the nervous system
CPT/HCPCS: 36415; 70450; 70496; 70498; 71045; 80053; 82550; 83735; 84484; 85025; 85610; 85730; 96365; 96375; 99284; J0136; J1885; Q9967

== ENCOUNTER 2024-04-24 11:23 | Observation (INO) | payer MEDICARE, SELFPAY ==
[2021-02-07 23:27] VITALS: BMI 22.1
[2024-04-24 11:40] VITALS: BP 147/81; PULSE 53; RESP 16; TEMP 36.1; O2SAT 97; BMI 21.7
--- NOTE | 2024-04-24 13:00 | DI.MRI.S_ITS ---
PROCEDURE: MR HEAD/BRAIN WO CON INDICATIONS: concern for CVA: seen 04/13, continued visual changes. TECHNIQUE: Noncontrast axial T1 spin echo, axial T2 fast spin echo, sagittal and axial FLAIR, coronal T2 fast spin echo, axial gradient echo, axial diffusion and ADC through the brain. COMPARISON: None. FINDINGS: Image quality: Excellent. CSF Spaces: Basal cisterns are patent. No extra-axial fluid collections. Ventricles are normal in size and shape. Brain: Focus of restricted diffusion in the medial occipital lobe (series 11, image 63). Additional focus of restricted diffusion in the right occipital lobe at the perez-white matter junction (series 11, image 61). This has dark signal on ADC and mildly hyperintense signal on T2 weighted sequences. Skull and face: Calvarium has normal marrow signal. Orbits appear normal. Sinuses: Sinuses and mastoids are clear. 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 Embolic source is a consideration. Findings discussed with Dr. Gillespie at time of dictation. Dictated by: Michael Burnette M.D. on 04/24/2024 at 12:50 Approved by: Michael Burnette M.D. on 04/24/2024 at 12:58
[2024-04-24 13:03] VITALS: BP 152/81; PULSE 52; RESP 14
--- NOTE | 2024-04-24 13:09 | EKG_ITS ---
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
--- NOTE | 2024-04-24 13:21 | ED_ITS ---
HPI - Neuro Symptoms/Deficit General Chief Complaint: Neuro Symptoms/Deficit Stated Complaint: funny colors in vision Time Seen by Provider: 04/24/24 12:52 Source: patient Mode of arrival: Ambulatory History of Present Illness HPI Narrative: 73-year-old male with no reported medical issues, patient states that he woke up yesterday had a loss of his vision in his left side. Patient states they noticed some color changes throughout the day. States vision has not improved he was seen here in the emergency department had head and neck CT angio labs and elected to return home and follow up with Ophthalmology. Was seen by ophthalmology who confirmed what sounds like a left homonymous hemianopsia on exam and told to return for brain MR. Patient states he had a little bit of a mild headache yesterday. States that has not improved. He denies any numbness tingling or weakness no difficulty with speech, no facial droop no difficulty with movement. States symptoms have resolved but have not worsened. He states no daily medications, had hernia repair several years ago. No known drug allergies. Denies any regular tobacco, alcohol or recreational drugs. Is not established with a primary care physician. On Anticoagulants: No Related Data Home Medications Medication Instructions Recorded Confirmed No Known Home Medications 02/08/21 02/13/21 Previous Rx's Medication Instructions Recorded oxycodone-acetaminophen 5 mg-325 See Rx Instructions .Route 02/08/21 mg tablet (Percocet) .COMPLEX PRN painful procedure #14 tabs Allergies Allergy/AdvReac Type Severity Reaction Status Date / Time No Known Drug Allergies Allergy Verified 04/24/24 11:39 Review of Systems Review of Systems ROS Unobtainable: All systems reviewed & are unremarkable except as noted in HPI and below Hematologic/Lymphatic On Anticoagulants: No Patient History Medical History Patient denies medical problems Surgical History History of tonsillectomy Social History household members: none Smoking Status: Never smoker Smoking Status: Never smoker alcohol intake frequency: holidays/special occasions only Substance Use Type: does not use Exam Narrative Exam Narrative: GEN: well nourished, well appearing male, alert and oriented x 3, patient appears to be in mild distress. 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 Throat is clear without any exudates, erythema, tonsillar enlargement or uvular deviation HEART: Regular rate and rhythm without murmur, clicks, rubs. No carotid bruits, pulses are equal in upper and lower extremities LUNGS:Lungs clear to auscultation, no wheezes, rales, crackles, chest moves symmetrically ABD:bowel sounds normal, soft, non-tender, no guarding, rebound, rigidity, no masses noted, no hepatosplenomegaly MSCL: Non-tender, no muscle atrophy, muscles strength 5/5 upper and lower extremities, no facial droop, no dysarthria. Full range of motion, normal gait NEURO:CN 2-12 intact, sensation normal, finger nose finger test normal, heel mccabe test normal. Initial Vital Signs Initial Vital Signs: Vital Signs Temperature 97 F L 04/24/24 11:40 Pulse Rate 53 L 04/24/24 11:40 Respiratory Rate 16 04/24/24 11:40 Blood Pressure 147/81 H 04/24/24 11:40 Pulse Oximetry 97 04/24/24 11:40 Oxygen Delivery Method Room Air 04/24/24 11:40 Scores NIH Stroke Scale Level of Conciousness: Alert, keenly responsive Ask month/age: Answers both questions correctly. Open/close eyes, close hand: Performs both tasks correctly Best gaze horizontal: Normal Visual valdez: Partial hemianopia Facial palsy: Normal symetrical movement Left arm drift: No drift for full 10 sec Right arm drift: No drift for full 10 sec Left leg drift: No drift for full 5 sec Right leg drift: No drift for full 5 sec Limb ataxia: Absent Sensory on face/arms/legs: Normal, no sensory loss Best language: No aphasia, normal Dysarthria: Normal Extinction or inattention: No abnormality Total NIH Stroke scale score: 1 Course Orders Ordered: ED Orders 04/24/24 13:00 MR head/brain wo con Stat 04/24/24 13:09 EKG-12 Lead Stat 04/24/24 13:20 Complete Blood Count AUTO DIFF Stat Comprehensive Metabolic Panel Stat Lipase Stat Magnesium Stat NT-proBNP (BNP-Adult 18+) Stat PTT Partial Thromboplastin Rojelio Stat Prothrombin Time INR Stat Troponin & CK Cardiac Panel Stat 04/24/24 13:39 Blood Culture Stat Acetaminophen (Acetaminophen 325 Mg Tablet) 650 mg PO Q6H PRN PRN Reason: Fever/Mild Pain (1-3) Aspirin (Aspirin Ec 81 Mg Tablet) 81 mg PO DAILY TASIA Atorvastatin Calcium (Atorvastatin 20 Mg Tablet) 80 mg PO BEDTIME TASIA Clopidogrel Bisulfate (Clopidogrel 75 Mg Tablet) 75 mg PO DAILY [facility] Heparin Sodium (Porcine) (Heparin 5,000 Unit/Ml Vial) 5,000 unit SUBCUT BID TASIA Naloxone HCl (Naloxone 0.4 Mg/Ml Vial) 0.2 mg IV Q2MIN PRN PRN Reason: Opiate Reversal Discontinued Medications Aspirin (Aspirin 81 Mg Chew Tab) 324 mg PO NOW ONE Stop: 04/24/24 13:25 Last Admin: 04/24/24 13:36 Dose: 324 mg Documented By: MELVIN Vital Signs Vital signs: Vital Signs - 8 hr 04/24/24 11:40 04/24/24 13:03 Temperature 97 F L Pulse Rate 53 L 52 L Respiratory Rate 16 14 Blood Pressure 147/81 H 152/81 H Pulse Oximetry 97 Oxygen Delivery Method Room Air MDM - Neuro Symptoms/Deficit Lab Data 04/24/24 13:20 04/24/24 13:20 Labs: Lab Results 04/24/24 Range/Units 13:20 WBC 4.9 (4.5-11.0) X10^3/uL RBC 4.36 L (4.5-5.9) X10^6/uL Hgb 13.7 (13.5-17.5) g/dL Hct 40.7 L (41-53) % MCV 93.4 (80-100) fL MCH 31.3 (26-34) PG MCHC 33.6 (30-36) % RDW 13.5 (11.6-14.8) % Plt Count 201 (150-400) X10^3/uL Neut % (Auto) 50.0 (50-75) % Lymph % (Auto) 37.6 (25-40) % [place] % (Auto) 9.2 (3-14) % Eos % (Auto) 2.5 (2-4) % Baso % (Auto) 0.7 (0-2) % Neut # (Auto) 2500 (1489-0783) /uL Lymph # (Auto) 1900 (1427-8294) /uL [place] # (Auto) 500 (0-900) /uL Eos # (Auto) 100 (0-450) /uL Baso # (Auto) 0 (0-100) /uL PT 12.0 (9.4-12.5) SECONDS INR 1.0 (0.9-1.3) APTT 31 (25.1-36.5) SECONDS Sodium 138 (137-145) mmol/L Potassium 4.5 (3.4-5.1) mmol/L Chloride 106 (98-107) mmol/L Carbon Dioxide 29 (22-32) mmol/L BUN 20 (9-20) mg/dL Creatinine 0.78 (0.66-1.25) mg/dL Estimated GFR > 60 (>60) mL/min BUN/Creatinine Ratio 25.6 H (6-22) Glucose 97 (80-110) mg/dL Calcium 8.8 (8.4-10.2) mg/dL Magnesium 2.1 (1.6-2.3) mg/dL Total Bilirubin 0.6 (0.2-1.3) mg/dL AST 33 (17-59) IU/L ALT 16 (<50) IU/L Alkaline Phosphatase 52 (38-126) U/L Total Creatine Kinase 70 (55-170) U/L Troponin I < 0.012 (0.01-0.034) ng/mL NT-Pro-B Natriuret Pep 125 H (<125) pg/mL Total Protein 6.8 (6.3-8.2) g/dL Albumin 3.9 (3.5-5.0) g/dL Globulin 2.9 (1.7-4.1) g/dL Albumin/Globulin Ratio 1.3 (1.0-2.8) Lipase 32 (23-300) U/L Imaging Data MR : Radiologist's Impression: Close Brain MRI (Signed) Michael Burnette - 04/24/24 Chest X-Ray (Signed) Neto Pitts - 04/23/[address] (Signed) Neto Pitts - 04/23/24 Head/Neck CTA (Signed) Neto Pitts - 04/23/24 Launch?[address] [address] Magnetic Resonance Report Signed Patient: Shad Villanueva MR#: [id number] : 1950 Acct:[id number] Age/Sex: 73 / M Date of Service: 04/24/24 Loc: ED Accession Number: [id number] Procedure: MR head/brain wo con Ordering Provider: Shaw Islas MD PROCEDURE: MR HEAD/BRAIN WO CON INDICATIONS: concern for CVA: seen 04/13, continued visual changes. TECHNIQUE: Noncontrast axial T1 spin echo, axial T2 fast spin echo, sagittal and axial FLAIR, coronal T2 fast spin echo, axial gradient echo, axial diffusion and ADC through the brain. COMPARISON: None. FINDINGS: Image quality: Excellent. CSF Spaces: Basal cisterns are patent. No extra-axial fluid collections. Ventricles are normal in size and shape. Brain: Focus of restricted diffusion in the medial occipital lobe (series 11, image 63). Additional focus of restricted diffusion in the right occipital lobe at the perez-white matter junction (series 11, image 61). This has dark signal on ADC and mildly hyperintense signal on T2 weighted sequences. Skull and face: Calvarium has normal marrow signal. Orbits appear normal. Sinuses: Sinuses and mastoids are clear. 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 Embolic source is a consideration. Findings discussed with Dr. Gillespie at time of dictation. Dictated by: Michael Burnette M.D. on 04/24/2024 at 12:50 Approved by: Michael Burnette M.D. on 04/24/2024 at 12:58 CTA - brain/neck: Radiologist's Impression: Close Brain MRI (Signed) Michael Burnette - 04/24/24 Chest X-Ray (Signed) Neto Pitts - 04/23/[address] (Signed) Neto Pitts - 04/23/24 Head/Neck CTA (Signed) Neto Pitts - 04/23/24 Launch?[address] [address] [address] Scan Report Signed Patient: Shad Villanueva MR#: [id number] : 1950 Acct:[id number] Age/Sex: 73 / M Date of Service: 04/23/24 Loc: ED Accession Number: [id number] Procedure: CT angio head and neck Ordering Provider: Alma Stafford MD PROCEDURE: CT ANGIO HEAD AND NECK INDICATIONS: STROKE SYMPTOMS TECHNIQUE: After the administration of intravenous contrast, 1 mm thick sections acquired from the aortic arch through the [place]. 3-dimensional gxucouq-mjwdzrcet-uxdgpdrlkh (MIP) and/or volume rendering reformats were acquired of the central intracranial vasculature and neck separately. For radiation dose reduction, the following was used: automated exposure control, adjustment of mA and/or kV according to patient size. COMPARISON: [facility], CR, XR CHEST 1V, 04/23/2024, 21:27. [facility], CT, CT STROKE, 04/23/2024, 21:12. FINDINGS: Image quality: There is artifact associated with the metallic hardware. Artifact from the metallic hardware is reduced by metal reconstruction algorithm. There is streak artifact seen through the level of the shoulders. BRAIN: CSF spaces: Ventricles are normal in size and shape. Basal cisterns are patent. No extra-axial fluid collections. Brain: No significant abnormality of the brain can be seen. Skull and face: Calvarium and facial bones appear intact, without suspicious lesions. Orbits appear normal. Sinuses: Sinuses and mastoids are clear. HEAD CT ANGIOGRAPHY: Anterior circulation: Intracranial internal carotid arteries are normal in size and flow. The flow within the paired anterior cerebral arteries is normal and symmetric. The flow within the middle cerebral arteries is normal and symmetric. The anterior communicating artery is seen. No aneurysms are seen. Posterior circulation: Visualized portions of the vertebral arteries demonstrate normal caliber, and join to form a normal appearing basilar artery. Flow within the posterior cerebral arteries is normal and symmetric. No aneurysms are seen. NECK CT ANGIOGRAPHY: Carotid system: The great vessels demonstrate a conventional anatomy as they arise from the aortic arch. The origins of the common carotid arteries appear patent. The common carotid arteries demonstrate normal caliber and courses. The bifurcation regions are within normal limits, without focal stenosis. Within the right internal carotid artery, there is a long segment carotid dissection seen, as on series 7 images 114-119. The left internal carotid artery is within normal limits. Posterior circulation: The origins of the vertebral arteries both appear widely patent. The more superior extracranial portions of both vertebral arteries also demonstrate normal courses and calibers. The left vertebral artery is dominant to the right. Soft tissues: Visualized neck soft tissues demonstrate no suspicious abnormalities. Bones: No suspicious bony lesions. Visualized cervical spine appears normally aligned. Grpb-kr-paurnesh cervical spine degenerative change is seen. IMPRESSION: No significant intracranial arterial abnormality is seen. 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 Please correlate with known patient history and any prior outside imaging. If there is strong clinical suspicion for an acute stroke, please consider a brain MRI for further evaluation, as it is more sensitive (assuming that there is no contraindication to MRI). Any quantitative measurements of stenosis were performed using NASCET criteria. Dictated by: Neto Pitts M.D. on 04/23/2024 at 20:57 Approved by: Neto Pitts M.D. on 04/23/2024 at 21:01 CT scan - head: Radiologist's Impression: Shad Villanueva??73??M??1950 ? Allergy/Adv: No Known Drug Allergies (More??) Close Brain MRI (Signed) Michael Burnette - 04/24/24 Chest X-Ray (Signed) Neto Pitts - 04/23/[address] (Signed) Neto Pitts - 04/23/24 Head/Neck CTA (Signed) Neto Pitts - 04/23/24 Launch?[place] [address] CT Scan Report Signed Patient: Shad Villanueva MR#: [id number] : 1950 Acct:[id number] Age/Sex: 73 / M Date of Service: 04/23/24 Loc: ED Accession Number: [id number] Procedure: CT Stroke Ordering Provider: Alma Stafford MD PROCEDURE: CT STROKE INDICATIONS: Positive BE-FAST, Stroke symptoms TECHNIQUE: Noncontrast 4.5 mm thick angled axial sections acquired from the foramen magnum to the vertex, with coronal reformats. For radiation dose reduction, the following was used: automated exposure control, adjustment of mA and/or kV according to patient size. COMPARISON: [facility], CT, CT ANGIO HEAD AND NECK, 04/23/2024, 21:15. FINDINGS: Image quality: Mild streak artifact can be seen through the skull base. CSF spaces: Basal cisterns are patent. No extra-axial fluid collections. The ventricles are symmetric in size and shape. Brain: No intracranial bleeds or masses. There is cerebral volume loss for age, with resultant ventricular and sulcal prominence. There are periventricular and deep white matter chronic small vessel ischemic changes. There is intracranial internal carotid artery atherosclerosis. Skull and face: Calvarium and visualized facial bones appear intact, without suspicious lesions. Sinuses: Visualized sinuses and mastoids are clear. IMPRESSION: No acute intracranial pathology. No acute intracranial hemorrhage is seen. Note: Dr. Stafford was not available to discuss this case at the time of this dictation. Case discussed by telephone with nurse Annamaria at 9:34 p.m. [place] time on April 23, 2024. She will discuss the case with Dr. Stafford. This study fulfills neurological imaging criteria for inclusion or exclusion of acute stroke therapies based on available published neurological guidelines. Dictated by: Neto Pitts M.D. on 04/23/2024 at 20:33 Approved by: Neto Pitts M.D. on 04/23/2024 at 20:39 Chest x-ray: Radiologist's Impression: Shad Villanueva??73??M??1950 ? Allergy/Adv: No Known Drug Allergies (More??) Close Brain MRI (Signed) Michael Burnette - 04/24/24 Chest X-Ray (Signed) Neto Pitts - 04/23/[address] (Signed) Neto Pitts - 04/23/24 Head/Neck CTA (Signed) Neto Pitts - 04/23/24 Launch?Image [address] [address] XRay Report Signed Patient: Shad Villanueva MR#: [id number] : 1950 Acct:[id number] Age/Sex: 73 / M Date of Service: 04/23/24 Loc: ED Accession Number: [id number] Procedure: XR chest 1V Ordering Provider: Alma Stafford MD PROCEDURE: XR CHEST 1V INDICATIONS: Possible stroke TECHNIQUE: One view of the chest was acquired. COMPARISON: [facility], CT, CT STROKE, 04/23/2024, 21:12. [facility], CT, CT ANGIO HEAD AND NECK, 04/23/2024, 21:15. FINDINGS: Surgical changes and devices: None. Lungs and pleura: Lungs are clear. No pleural effusions or pneumothorax. Mediastinum: The cardiac contours are within normal limits. The aorta demonstrates calcification and tortuosity. There is a likely moderate pericardial effusion. Bones and chest wall: No suspicious bony lesions. There is a remote left clavicle fracture. Mac row degenerative Overlying soft tissues appear unremarkable. IMPRESSION: Clear lungs. Additional findings: Remote left clavicle fracture Likely moderate hiatal hernia Dictated by: Neto Pitts M.D. on 04/23/2024 at 20:57 Approved by: Neto Pitts M.D. on 04/23/2024 at 20:57 ECG Data Attestation: I personally reviewed and interpreted this ECG as follows: Prior ECG tracings: not available for review Interpretation: Sinus bradycardia with sinus arrhythmia rate of 56 WA 158 QRS of 90 QTC 397, no acute ST changes appreciated. No priors for comparison. MDM Narrative Medical decision making narrative: 33-year-old male who was seen yesterday, had evaluation with head CT CT angio for potential stroke with complaint of vision changes. Patient was offered to stay for MRI yesterday and elected to discharge and follow up with eye doctor who told patient to return to evaluation for MR of brain. Patient woke up with symptoms yesterday is not candidate for tPA based on timing. Head CT from 04/23/2024 shows no acute intracranial hemorrhage, no intracranial pathology. Head and neck CT angio shows no significant intracranial arterial abnormality actively long segment dissection involving left? internal carotid artery. Chest x-ray from 04/23/2024 shows clear lungs left clavicle fracture likely moderate hiatal hernia. Labs from 04/23/2024 showed a BUN 28 but otherwise normal CBC, CMP and troponin. Brain MR from today 04/24/2024 shows 2 regions of acute infarct right occipital lobe. Labs white count 4.9 hemoglobin of 13 platelets of 201, coags are negative electrolytes are normal creatinine is 0.78 glucose is 97 LFTs are negative tripped less than 0.012 with a BNP of 125. EKG sinus bradycardia with sinus arrhythmia. Clarified with Radiology regarding report for CT angio as it is his right internal carotid in the body of the paragraph but left internal carotid under impression. Clarified that is right side on CT angio. Spoke with [facility], spoke with Dr. Bermudez, neurology: Recommendations include echo bubble study, lipid panel, TSH A1c, tele during hospitalization they do recommend aspirin 81 mg daily, Plavix 75 mg x 21 days, atorvastatin 40 mg daily and antihypertensives with a goal of blood pressure less than 130/80. They do also recommend that patient have follow up with neurology clinic for CTA to evaluate the dissection in 6 months can be with the [facility] or a different Neurology group. They note that is the location of the dissection isn't consistent with where his stroke is but they would like to follow it. Spoke with Dr. Hopkins hospitalist, reviewed recommendations from neurology including follow up for CTA in 6 months with Neurology Clinic with repeat CT angio, recommendations for medications and workup. Accepts for admission. Stroke Core Measures Exclusion Criteria TPA in CVA: Symptom Onset >3 or 4.5 Hours Discharge Plan Departure Patient Disposition: Admitted As Inpatient Clinical Impression: Acute CVA (cerebrovascular accident) Admit Date/Time: 04/24/24 15:29 Admit Provider: Jhon Hopkins
[2024-04-24] MEDS: ASPIRIN 81 MG CHEW TAB 324 MG PO (13:36)
[2024-04-24 13:41] LABS: Add Manual Diff / Slide Review NO; Basophils Absolute Auto 0 /uL (0-100); Basophils Percent Auto 0.7 % (0-2); Eosinophils Absolute Auto 100 /uL (0-450); Eosinophils Percent Auto 2.5 % (2-4); Hematocrit 40.7 % (41-53); Hemoglobin 13.7 g/dL (13.5-17.5); Lymphocytes Absolute Auto 1900 /uL (1100-4500); Lymphocytes Percent Auto 37.6 % (25-40); Mean Corpuscular HGB Conc 33.6 % (30-36); Mean Corpuscular Hemoglobin 31.3 PG (26-34); Mean Corpuscular Volume 93.4 fL (80-100); Monocytes Absolute Auto 500 /uL (0-900); Monocytes Percent Auto 9.2 % (3-14); Neutrophils Absolute Auto 2500 /uL (1500-7000); Platelet Count 201 X10^3/uL (150-400); Red Blood Cell Count 4.36 X10^6/uL (4.5-5.9); Red Cell Distribution Width 13.5 % (11.6-14.8); White Blood Cell Count 4.9 X10^3/uL (4.5-11.0)
[2024-04-24 14:00] LABS: PTT Partial Thromboplastin Tim 31 SECONDS (25.1-36.5)
[2024-04-24 14:08] LABS: Alanine Aminotransferase 16 IU/L (<50); Albumin 3.9 g/dL (3.5-5.0); Albumin Globulin Ratio 1.3 (1.0-2.8); Alkaline Phosphatase 52 U/L (38-126); Aspartate Aminotransferase 33 IU/L (17-59); BUN Creatinine Ratio 25.6 (6-22); Bilirubin Total 0.6 mg/dL (0.2-1.3); Blood Urea Nitrogen 20 mg/dL (9-20); Calcium 8.8 mg/dL (8.4-10.2); Carbon Dioxide 29 mmol/L (22-32); Chloride 106 mmol/L (98-107); Creatine Kinase 70 U/L (55-170); Estimated Glomerular Filt Rate > 60 mL/min (>60); Globulin 2.9 g/dL (1.7-4.1); Glucose 97 mg/dL (80-110); HEMOLYSIS < 15 (0-50); Lipase 32 U/L (23-300); Magnesium 2.1 mg/dL (1.6-2.3); Potassium 4.5 mmol/L (3.4-5.1); Sodium 138 mmol/L (137-145); Total Protein 6.8 g/dL (6.3-8.2)
[2024-04-24 14:19] LABS: NT-proBNP (BNP-Adult 18+) 125 pg/mL (<125); Troponin I < 0.012 ng/mL (0.01-0.034)
--- NOTE | 2024-04-24 15:41 | DI.ECHO.S_ITS ---
[facility] +---------+ [facility] : : [address] : : [place] : : [id number] : : Phone: [phone] Echocardiogram Report + + :Name: ALAN GUERRERO Study Date: 04/24/2024 Height: 72 in : :[facility] ReadingLocation: Weight: 160 lb : : Gender: Male BSA: 1.9 m2 : :: 1950 Age: 73 yrs BP: 141/80 mmHg: :Reason For Study: CVA : :Ordering Physician: TARSHA, : :ARLINE Galvan Performed By: Luke Segal : :Referring: ARLINE WILLINGHAM : + + Interpretation Summary 1) Normal left ventricular thickness and size with moderately reduced systolic function (EF 35-40%). 2) Normal right ventricular size and function. 3) No significant valvular abnormalities. 4) No prior Echo available for comparison. Procedure: A two-dimensional transthoracic echocardiogram with color flow and Doppler was performed. The study quality was technically adequate. There is no prior echocardiogram noted for this patient. The heart rate ranged between 42-56 bpm during the study. Left Ventricle: The left ventricle is normal in size and wall thickness. The ejection fraction is estimated to be 35-40%. There is moderate global hypokinesis of the left ventricle. Diastolic parameters suggest a relaxation abnormality of the left ventricle, consistent with probable normal filling pressures. Right Ventricle: The right ventricle is normal size. The right ventricular systolic function is normal. Atria: The left atrial size is normal. The right atrium is mildly dilated. The interatrial septum grossly appears intact with no obvious evidence for an atrial septal defect. Mitral Valve: The mitral valve is normal. There is no mitral valve stenosis. There is mild mitral regurgitation. Aortic Valve: The aortic valve is trileaflet. There is no aortic valve stenosis. No aortic regurgitation is present. Tricuspid Valve: The tricuspid valve is normal. There is no tricuspid stenosis. There is mild tricuspid regurgitation. The right ventricular systolic pressure is estimated to be at least 33.2 mmHg based on an estimated right atrial pressure of 3 mm Hg. Pulmonic Valve: The pulmonic valve is not well visualized. There is no pulmonic valvular stenosis. There is no pulmonic valvular regurgitation. Great Vessels: The aortic root is normal size. The dimensions of the ascending aorta are normal. The IVC is of normal diameter and collapses greater than 50% with a sniff. This suggests a low right atrial pressure of 3 mm Hg. Pericardium/ Pleura There is no pericardial effusion. There is no pleural effusion. MMode/2D Measurements & Calculations LVIDd: 5.1 cm LVOT diam: 2.1 cm LVIDs: 3.9 cm Ao root diam: 3.2 cm FS: 24.6 % asc Aorta Diam: 3.2 cm IVSd: 0.70 cm LVPWd: 0.86 cm LV arreola. diameter/BSA (cm/m^2): 2.6 LV sys. diameter/BSA (cm/m^2): 2.0 LA A2 area: 19.3 cm2 RA long axis: 5.4 cm LA A4 area: 17.4 cm2 RA area: 17.7 cm2 LA length (vol): 4.9 cm RA vol: 48.8 ml LA vol: 58.3 ml RA : 25.2 ml/m2 LA vol index: 30.1 ml/m2 IVC diam: 1.7 cm RVD1 (basal): 3.5 cm RVD2 (mid): 3.3 cm TAPSE: 2.4 cm Doppler Measurements & Calculations Ao V2 max: 116.1 cm/sec LVOT Max Romulo: 83.2 cm/sec Ao V2 mean: 84.1 cm/sec LV V1 max P.8 mmHg Ao max P.4 mmHg LV V1 VTI: 21.3 cm Ao mean P.1 mmHg ANITA(I,D): 2.6 cm2 Ao V2 VTI: 27.0 cm ANITA(V,D): 2.4 cm2 sev ratio: 0.79 ANITA indexed to BSA (cm^2/m^2): 1.4 MV E max romulo: 55.8 cm/sec TR max romulo: 274.4 cm/sec MV A max romulo: 34.0 cm/sec TR max P.2 mmHg MV E/A: 1.6 PA V2 max: 77.8 cm/sec Med Peak E' Romulo: 10.0 cm/sec PA V2 mean: 57.2 cm/sec E/E' med: 5.6 PA mean P.4 mmHg Lat Peak E' Romulo: 11.8 cm/sec PA pr(Accel): 13.9 mmHg E/E' lat: 4.7 E/e' average: 5.2 MV dec time: 0.26 sec SV(LVOT): 71.3 ml Reading Physician:09:13 AM
--- NOTE | 2024-04-24 15:42 | PM.HP.1 ---
History of Present Illness History of Present Illness Date Patient Seen: 04/24/24 Chief complaint: funny colors in vision Narrative: From ED doctor: 73-year-old male with no reported medical issues, patient states that he woke up yesterday had a loss of his vision in his left side. Patient states they noticed some color changes throughout the day. States vision has not improved he was seen here in the emergency department had head and neck CT angio labs and elected to return home and follow up with Ophthalmology. Was seen by ophthalmology who confirmed what sounds like a left homonymous hemianopsia on exam and told to return for brain MR. Patient states he had a little bit of a mild headache yesterday. States that has not improved. He denies any numbness tingling or weakness no difficulty with speech, no facial droop no difficulty with movement. States symptoms have resolved but have not worsened. He states no daily medications, had hernia repair several years ago. No known drug allergies. Denies any regular tobacco, alcohol or recreational drugs. Is not established with a primary care physician. On Anticoagulants: No Additional information: Symptoms began on Wednesday. He had a mild right posterior headache at that time. No recent head trauma. No history of stroke, diabetes, hypertension, or hyperlipidemia. No history of smoking. He did also have visual flashing in the left lower quadrants as well as intermittent geometric shapes and vivid colors. He was seen in the emergency department with a negative CT brain and a CTA revealing a right carotid dissection without thrombosis. Ultimately he was discharged yesterday and went to the eye doctor today who diagnosed day lower quadrant hemianopsia. The patient returned to the emergency department where MRI revealed a right occipital infarct x2. He was mildly hypertensive in the emergency department but this is improved to 132/80. He was no headache. He has no history of migraine syndromes. He was no other symptoms other than his visual field cut and other visual abnormalities noted. His pupils are asymmetric with the right being quite dilated, he was dilated at the eye doctor today. [facility] Medical History Patient denies medical problems Surgical History History of tonsillectomy Social History household members: none Smoking Status: Never smoker Meds Home Medications and Allergies Home Medications Medication Instructions Recorded Confirmed Type No Known Home Medications 02/08/21 04/24/24 History Allergies Allergy/AdvReac Type Severity Reaction Status Date / Time No Known Drug Allergies Allergy Verified 04/24/24 11:39 Review of Systems Review of Systems Narrative: All else reviewed and otherwise unremarkable except as noted in the history and physical. Exam Vital Signs (past 8 hours): - 04/24/24 11:40 04/24/24 13:03 Temperature 97 F L Pulse Rate 53 L 52 L Respiratory Rate 16 14 Blood Pressure 147/81 H 152/81 H Pulse Oximetry 97 Oxygen Delivery Method Room Air Oxygen Delivery Method Room Air Narrative Exam Narrative: NAD, alert and oriented, fluent speech, calm. Normocephalic skull, EOMI, anicteric sclera, symmetric pupils. Oropharynx unremarkable, no droop. Neck supple, midline trachea, no adenopathy. Lungs clear, normal rate and effort. Heart regular, no murmur gallop or rub. Abdomen is soft, non distended and non tender. Extremities are free of edema. Skin is free of rash or lesions. Joints are not swollen or deformed. Judgment appears to be normal. Neuro: Clinical: Cranial nerves are grossly intact with the exception of a left lower quadrant hemianopsia. Motor strength is 5/5 all extremities. Speech and language are normal. His right pupil is dilated compared to the left. This is likely residual from his eye doctor dilated in his eyes earlier today. There was no facial droop. NIH Stroke Scale (ED): Level of Conciousness: Alert, keenly responsive Ask month/age: Answers both questions correctly. Open/close eyes, close hand: Performs both tasks correctly Best gaze horizontal: Normal Visual valdez: Partial hemianopia Facial palsy: Normal symetrical movement Left arm drift: No drift for full 10 sec Right arm drift: No drift for full 10 sec Left leg drift: No drift for full 5 sec Right leg drift: No drift for full 5 sec Limb ataxia: Absent Sensory on face/arms/legs: Normal, no sensory loss Best language: No aphasia, normal Dysarthria: Normal Extinction or inattention: No abnormality Total NIH Stroke scale score: 1 Objective ECG Impression: Intervals [facility] Rate: 56 P: 4 CT: 158 QRS: 11 QRSD: 90 T: 2 QT: 412 QTc: 397 Interpretive Statements Sinus bradycardia with sinus arrhythmia Imaging Multiple studies:: Radiologist's impression: Brain MRI: Two regions of acute infarct in the right occipital lobe. Embolic source is a consideration. Brain CT April 23: No acute intracranial pathology. No acute intracranial hemorrhage is seen. Head and neck CTA April 23: No significant intracranial arterial abnormality is seen. 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 Please correlate with known patient history and any prior outside imaging. Labs 04/24/24 13:20 04/24/24 13:20 Labs: Laboratory Results - last 24 hr 04/24/24 13:20 WBC 4.9 RBC 4.36 L Hgb 13.7 Hct 40.7 L MCV 93.4 MCH 31.3 MCHC 33.6 RDW 13.5 Plt Count 201 Neut % (Auto) 50.0 Lymph % (Auto) 37.6 Mineral % (Auto) 9.2 Eos % (Auto) 2.5 Baso % (Auto) 0.7 Neut # (Auto) 2500 Lymph # (Auto) 1900 Mineral # (Auto) 500 Eos # (Auto) 100 Baso # (Auto) 0 PT 12.0 INR 1.0 APTT 31 Sodium 138 Potassium 4.5 Chloride 106 Carbon Dioxide 29 BUN 20 Creatinine 0.78 Estimated GFR > 60 BUN/Creatinine Ratio 25.6 H Glucose 97 Calcium 8.8 Magnesium 2.1 Total Bilirubin 0.6 AST 33 ALT 16 Alkaline Phosphatase 52 Total Creatine Kinase 70 Troponin I < 0.012 NT-Pro-B Natriuret Pep 125 H Total Protein 6.8 Albumin 3.9 Globulin 2.9 Albumin/Globulin Ratio 1.3 Lipase 32 Assessment & Plan Assessment & Plan narrative: 1. 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 2. Right internal carotid artery dissection, present on admission and active. 3. Possible untreated hypertension, present on admission and active. Plan: -dual antiplatelet therapy for 21 days was advised by Neurology. High dose statin will also be started. -physical therapy and occupational therapy assessments. -permissive hypertension for least 24 hours, then look at treating possible untreated hypertension. -lipid profile and A1c. -ECHO The patient was admitted to observation status, anticipate a 1 night hospital stay at this point. Full resuscitation. Time-Based Coding :: 30 min spent with patient and on the chart (including review of chart, obtaining history, exam, reviewing outside data, placing orders, documenting exam and treatment plan, and counseling patient) on 04/24. Quality MIPS - Admit I confirm the patient?s Advance Care Plan is present, Code status is documented, Surrogate decision maker is in patient?s record [If Yes, STOP here]: Yes MIPS - Meds 'Current medications' to include all prescriptions, [id number] products, herbals, cannabis/cannabidiol products, and vitamin/mineral/dietary (nutritional) supplements. I have utilized all available resources to obtain, update, or review the patient?s current medications. [If Yes, STOP here]: Yes
[2024-04-24 15:45] VITALS: BP 141/80; PULSE 54; RESP 16; O2SAT 99
[2024-04-24 16:30] VITALS: BP 132/80; PULSE 55; RESP 16; TEMP 36.4; O2SAT 98
--- NOTE | 2024-04-24 16:38 | PC.NURSE ---
Addendum entered by Penny Pan R.N. 04/24/24 17:08: Patient's pupils are unequal, right greater than left, nonreactive. Pt reports had eyes dilated today at eye doctor. Original Note: Admit Note Pt arrived to room 223 via wheelchair from ER at approx 1615, SBA/independent. Alert and oriented x3. Reports symptoms to left eye are improving, does report decreased visual field (peripheral) to left, reports floaters resolving. NIH 1. Denies pain. Echo in room at this time. Oriented pt to room and to bed/tv/call light controls.
[2024-04-24 16:57] VITALS: BMI 21.0
[2024-04-24 20:00] VITALS: RESP 17; TEMP 36.4
[2024-04-24 20:28] VITALS: BP 103/63; PULSE 60; O2SAT 96
[2024-04-24] MEDS: ATORVASTATIN 20 MG TABLET 80 MG PO (20:32)
[2024-04-24] MEDS: HEPARIN 5,000 UNIT/ML VIAL 5000 UNIT SUBCUT (20:33)
[2024-04-25] VITALS: BP 101/76; PULSE 50; RESP 16; TEMP 36.3; O2SAT 96
[2024-04-25 04:00] VITALS: BP 111/70; PULSE 56; RESP 14; TEMP 36.2; O2SAT 98
[2024-04-25 04:43] LABS: Add Manual Diff / Slide Review NO; Basophils Absolute Auto 0 /uL (0-100); Basophils Percent Auto 0.3 % (0-2); Eosinophils Absolute Auto 200 /uL (0-450); Eosinophils Percent Auto 3.9 % (2-4); Hematocrit 40.1 % (41-53); Hemoglobin 13.5 g/dL (13.5-17.5); Lymphocytes Absolute Auto 2000 /uL (1100-4500); Lymphocytes Percent Auto 39.8 % (25-40); Mean Corpuscular HGB Conc 33.6 % (30-36); Mean Corpuscular Hemoglobin 31.3 PG (26-34); Mean Corpuscular Volume 93.2 fL (80-100); Monocytes Absolute Auto 400 /uL (0-900); Monocytes Percent Auto 8.5 % (3-14); Neutrophils Absolute Auto 2400 /uL (1500-7000); Neutrophils Percent Auto 47.5 % (50-75); Platelet Count 184 X10^3/uL (150-400); Red Blood Cell Count 4.31 X10^6/uL (4.5-5.9)
[2024-04-25 05:06] LABS: BUN Creatinine Ratio 20.5 (6-22); Blood Urea Nitrogen 17 mg/dL (9-20); Calcium 8.8 mg/dL (8.4-10.2); Carbon Dioxide 27 mmol/L (22-32); Chloride 106 mmol/L (98-107); Estimated Glomerular Filt Rate > 60 mL/min (>60); Glucose 92 mg/dL (80-110); HEMOLYSIS < 15 (0-50); Potassium 4.3 mmol/L (3.4-5.1); Sodium 138 mmol/L (137-145)
[2024-04-25 05:11] LABS: Hemoglobin A1C% w Est Avg Glu 5.6 % (4.0-6.0)
--- NOTE | 2024-04-25 05:33 | PC.NURSE ---
Sinus gaurang on tele, lowest 43. Dr Ambriz aware.
[2024-04-25 06:29] LABS: Thyroid Stimulating Hormone 1.54 uIU/mL (0.47-4.68)
[2024-04-25 08:00] VITALS: BP 120/75; PULSE 63; RESP 17; TEMP 36.6; O2SAT 96
[2024-04-25] MEDS: CLOPIDOGREL 75 MG TABLET PO (09:03)
[2024-04-25] MEDS: HEPARIN 5,000 UNIT/ML VIAL 5000 UNIT SUBCUT (09:04)
[2024-04-25] MEDS: ASPIRIN EC 81 MG TABLET PO (09:04)
--- NOTE | 2024-04-25 10:06 | CM.DANOTE ---
DCP Assessment Note Pt is a 73yo M Here with CVA. PCP None Payer medicare and self pay SANDFILL OPERATOR reviewed EMR. PT/OT/speech pending. Per chart, pt lives alone in [place], works, and is indep at baseline. Per chart, main symptom was loss of vision on his left side. SANDFILL OPERATOR met with pt in room. Pt confirms indep/active at baseline. No PCP. SANDFILL OPERATOR provided list of primary care providers at per pt's preference as well as the number to call to establish with someone. Pt appreciative. Asked for a medical work excuse letter. SANDFILL OPERATOR arranged with hospitalist. Pt Denied other CM needs at this time. Per provider in morning rounds, potential to dc later today. P: anticipate dc home later today, transport with friend in POV. Pt to arrange start of care with PCP. CM team will continue to follow as needed STANLEY Alba Discharge Planning/Care Management CM Discharge Assessment Start: 04/25/24 10:03 Freq: Status: Active Protocol: Document 04/25/24 10:03 (Rec: 04/25/24 10:05 [id number]) Discharge Planning Assessment Assigned Graphics Edit Technician STANLEY Samuels DPOA/Assigned Designee Name brother Edwards Contact Information [phone] Advance Directives? No History Provided By Patient,Medical Record Prior Living Arrangements House Household Members none Type of transporation used prior to Drives own vehicle admit Independent with ADL's Yes Is patient alert and oriented? Yes Barriers to Discharge No Discharge Plan Home Transportation Arrangement friend/co-worker Referrals Initiated None needed Whiteboard Updated in Patient Room with Yes name and ext. # of Graphics Edit Technician Review Status In Process Please Provide Date Initial DC 04/25/24 Assessment Was Performed Next Review Type Continued Stay Review
--- NOTE | 2024-04-25 10:15 | ST.IPIE ---
Visit Care Team Role Provider Type Alma Gillespie DO Emergency Provider Physician Referring Provider Specialty: Emergency Medicine Address: [address] [place] [address], [id number] Email: [email or web address] Jhon Hopkins MD Admit Provider Physician Attending Provider Specialty: Internal Medicine Address: [address] [place] [address], [id number] Email: [email or web address] Diagnoses Cerebral infarction, unspecified (04/24/24) Past Medical History (Last Reviewed 04/24/24 @ 15:43 by Jhon Hopkins MD) Patient denies medical problems (Medical) ST IP Initial Evaluation Report COILED TUBING SUPERVISOR Adult Cognitive Linguistic Eval Start: 04/25/24 09:47 Freq: Status: Active Protocol: Document 04/25/24 09:48 SS (Rec: 04/25/24 10:14 SS [id number]) Adult Cognitive Linguistic Evaluation Session Time Visit Start Time 09:30 Visit Stop Time 09:48 Total Visit Minutes 18 Visit Information Visit Number Initial Evaluation Referral Referring Provider Dr. Alma Gillespie Reason for Referral Right occipital lobe CVA Setting Assessment Location Acute Care Visit Type Note Type Initial evaluation Patient Information Identification Type Name,Wristband Patient History Pt is a 73 year old male who was referred to COILED TUBING SUPERVISOR for assessment and treatment of speech/language/cognition/ swallowing function following cute infarct in the right occipital lobe x2. Per H&P, patient states that he woke up yesterday [Wednesday] had a loss of his vision in his left side. Patient states they noticed some color changes throughout the day. States vision has not improved he was seen here in the emergency department had head and neck CT angio labs and elected to return home and follow up with Ophthalmology. Was seen by ophthalmology who confirmed what sounds like a left homonymous hemianopsia on exam and told to return for brain MR. Patient states he had a little bit of a mild headache yesterday. States that has not improved. He denies any numbness tingling or weakness no difficulty with speech, no facial droop no difficulty with movement. States symptoms have resolved but have not worsened. He states no daily medications, had hernia repair several years ago. No known drug allergies. Denies any regular tobacco, alcohol or recreational drugs. Symptoms began on Wednesday. He had a mild right posterior headache at that time. No recent head trauma. No history of stroke, diabetes, hypertension, or hyperlipidemia. No history of smoking. He did also have visual flashing in the left lower quadrants as well as intermittent geometric shapes and vivid colors. He was seen in the emergency department with a negative CT brain and a CTA revealing a right carotid dissection without thrombosis . Ultimately he was discharged yesterday and went to the eye doctor today who diagnosed day lower quadrant hemianopsia. The patient returned to the emergency department where MRI revealed a right occipital infarct x2. He was mildly hypertensive in the emergency department but this is improved to 132/80. He was no headache. He has no history of migraine syndromes . He was no other symptoms other than his visual field cut and other visual abnormalities noted. His pupils are asymmetric with the right being quite dilated, he was dilated at the eye doctor today. Only PMHx available in records at time of evaluation is tonsillectomy . 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 He reports a left-sided visual cut rather than neglect. Pt alert and oriented x4 and able to respond to case history questions without overt difficulty. Pt was 100% intelligible. He took several sips of thin liquids via straw during the assessment without overt difficulty or s/sx of oropharyngeal dysphagia. Pt reported very mild difficulties with memory at baseline that appear to be typical for pt's age (e.g., occasionally forgetting why he walked into a room or forgetting a to-do task to complete). Mental Status Alert,Responsive,Cooperative Assessment Oral Motor Examination Completed Yes Results Labial Movement: WNL Lingual Movement: WNL Jaw Movement: WNL Informal Assessment Receptive Language Normal Yes Expressive Language Normal Yes Pragmatic Language Normal Yes Speech Normal Yes Cognition Normal Yes Formal Assessment Standardized Test/Screener Type [facility] Mental Status ([facility]) Administration Complete Results The [facility] Mental Status (UMS) Examination was used to obtain information regarding the patient?s cognitive abilities. The UMS consists of ten questions that assess delayed recall, verbal fluency, comprehension, calculations, attention, working memory, and orientation. A scored is calculated from a possible 30 points. Scores fall in one of three ranges describing a patient?s level of impairment based upon level of education. Patients who have completed high school are expected to score slightly higher on this test than those who have not. For someone with a high school education, WNL is 27-30. The SLUMS was completed on this date. Subtest scores are as follows: Orientation: 3/3 Immediate Recall: 5/5 (not calculated in total score) Numeric Calculation: 3/3 Divergent Namin/3 (total of 18) Delayed Recall: 3/5 (missed 2/ 5 objects) Attention/Registration with [employer]: 2/2 Clock Drawing (Visuospatial & Executive Functioning): 4/4 ( unaffected by visual cut) Geometric Figures: 2/2 Short Story (memory/recall): 8 /8 Total Score: 28/30 Within normal limits Findings/Results Language Function Within normal limits Cognitive Function Within normal limits Findings Pt presented with within normal limits cognitive- communication function. Additionally, swallowing, speech, and language function were informally observed to be WNL with no change from baseline. No further COILED TUBING SUPERVISOR services indicated at this time. Please re-consult if new concerns. RN and MD notified of assessment results and expressed understanding. Prognosis Prognosis Good Plan of Care Speech-Language Treatment No Patient/Caregiver Education Described results of evaluation,Patient expressed understanding of evaluation Discharge Recommendations Home
--- NOTE | 2024-04-25 10:29 | PC.NURSE ---
Patients pupils are both equal and reactive to light. He states that he is still having some difficulty with pheriperal vision in both eyes but left one seems to be getting better, states that the same thing has been happing with his r.eye. Dr. Hopkins states that place of CVA in brain can cause this to happen in both eyes. He is independent in the room and denies any pain or discomfort. NIH score was a 1. He is resting now and will most likely be discharged today.
--- NOTE | 2024-04-25 11:32 | OT.IP.EVAL ---
Current Diagnoses Cerebral infarction, unspecified (04/24/24) Past Medical History (Last Reviewed 04/24/24 @ 15:43 by Jhon Hopkins MD) Patient denies medical problems Surgical History (Last Reviewed 04/24/24 @ 15:43 by Jhon Hopkins MD) History of tonsillectomy Occupational Therapy Inpatient Evaluation/Re-Eval M1 PT/OT-IP Prior Functional Status Start: 04/25/24 11:34 Freq: NEEDED Status: Active Protocol: Document 04/25/24 11:35 [facility] (Rec: 04/25/24 11:55 [facility] [id number]) Medical Review Prior Functional Status Communication Independent Mobility and Gait Independent with no device. 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 Social History Household Members none Living Arrangements RV Number of Stairs To Enter/Railing? Pt lives in a trailer with 2 steps to enter and no rails. Additional Social History Comment Pt has a composting toilet and washes off in the shop at work. M2 OT-IP Current Condition Start: 04/25/24 11:34 Freq: Status: Active Protocol: Document 04/25/24 11:35 [facility] (Rec: 04/25/24 11:55 [facility] [id number]) Occupational Therapy Current Condition Current Condition Evaluation Date 04/25/24 Treatment Diagnosis Right occipital lobe CVA Diagnosis Onset Date 04/24/24 M3 OT- IP Subjective and Pain Start: 04/25/24 11:34 Freq: Status: Active Protocol: Document 04/25/24 11:35 [facility] (Rec: 04/25/24 11:55 [facility] [id number]) OT- Subjective Occupational Therapy Visit Type Type Initial Evaluation Visit Start Time 10:35 Visit Stop Time 11:32 Occupational Therapy Visit Comments Patient Comments Pt agreed to work with OT for eval. Patient/Caregiver Goals TO go home. OT Pain Assessment Pain When Pain Assessed At Rest Pain Present Pain Present Denied Pain M4 OT- IP ADL's Start: 04/25/24 11:34 Freq: Status: Active Protocol: Document 04/25/24 11:35 [facility] (Rec: 04/25/24 11:55 [facility] [id number]) OT ODU-Myof-Xylhwdc General Evaluation Self-Feeding Ability Independent OT ADL-Grooming General Evaluation Grooming Ability Independent OT ADL-Oral Care General Eval Oral Care Ability Independent OT ADL-Dressing General Eval Upper Body Dressing Ability Independent Lower Body Dressing Ability Independent OT ADL-Toileting General Evaluation Toileting Ability Independent Comments OT Toileting Comments Suggested pt have increased lighting the bathroom. OT ADL-Bathing Comments OT Bathing Comments Not performed. M5 OT- IP IADL's Start: 04/25/24 11:34 Freq: Status: Active Protocol: Document 04/25/24 11:35 [facility] (Rec: 04/25/24 11:55 [facility] [id number]) OT-Instrumental Activities of Daily Living Home Safety Awareness Awareness of Need for Assistance at Home Good Awareness Ability to Problem Solve Emergency Able to Problem Solve Situations Medication Management Medication Management No Deficits Identified Money Management Money Management No Deficits Identified Meal Preparation Meal Preparation No Deficits Identified Supervisor Product Inspection Supervisor Product Inspection No Deficits Identified Driving Driving Comments Pt agrees to drive with a friend initially. 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 Cognitive Comments Cognitive Assessment Comments Pt scored 62 seconds on [place] Making Part B which implies normal for visual attention, speed of processing, executive functioning, mental flexibility, and task switching. Pt agrees that his left peripheral vision is slightly off left eye greater than right eye. Pt to be mindful to look to the left. Pt needing time to follow specific commands and instructions and needing clarification to problem solve . Suggested when pt at work to repeat the instructions back or ask to have instructions repeated so that he fully understands the directions. OT- Vision and Hearing OT- Hearing Assessment OT- Hearing Assessment WFL OT- Vision Assessment Visual Attentiveness WFL Occular Pursuits WFL Visual [place] Impaired Vision Assessment Comments Decreased for depth perception due to pt has monovision. M7 OT- IP Mobility and Balance Start: 04/25/24 11:34 Freq: Status: Active Protocol: Document 04/25/24 11:35 [facility] (Rec: 04/25/24 11:55 [facility] [id number]) OT- Bed Mobility Assessment Rolling Level of Assistance Independent Supine to Sit Supine to Sit Assist Independent Sit to Supine Sit to Supine Assist Independent Scooting Scooting to Edge of Bed Independent Scooting Up and Down in Bed Independent OT-Transfer Assessment Sit to and From Stand Sit to and from Stand Independent Transfers Transfer Ability Independent Technique Transfer Destination Chair,Toilet Transfer Technique Stand Step Pivot Devices Transfer Assistive Devices None Comments Mobility Comments Pt is completely independent on his feet and able to get up and down from the floor, carry objects and place up on the bench, and climb up to the window ledge with good safety and balance. OT- Balance Assessment Sitting Balance and Reactions Static Sitting Balance Ability Normal Dynamic Sitting Balance Ability Normal Standing Balance and Reactions Static Standing Balance Ability Normal Dynamic Standing Balance Ability Normal M8 OT- IP Objective Assessments Start: 04/25/24 11:34 Freq: Status: Active Protocol: Document 04/25/24 11:35 [facility] (Rec: 04/25/24 11:55 [facility] [id number]) OT Gross Range of Motion Upper Extremity Range of Motion Assessment Within Functional Limits OT Strength Upper Extremity Strength Assessment Within Functional Limits Hand Electrical Sign Wirer Strength Hand Dominance Right OT- Coordination Assessment Upper Extremity Finger to Nose Test Within Functional Limits Comments Coordination Comments 9 hole peg right hand 31sec-10 % for age group, left hand 29 sec around 25% for age group. Pt states has noticed since the 1st of the year that he has not been able to pick things up as well especially with his right hand. OT-Muscle Tone Assessment Muscle Tone WNL Yes OT Sensation Assessment Comments Summary Comments Intact for light touch and proprioception. M9 OT- IP Assessment and Plan Start: 04/25/24 11:34 Freq: Status: Active Protocol: Document 04/25/24 11:35 [facility] (Rec: 04/25/24 11:55 [facility] [id number]) OT Summary Assessment and Plan Potential Rehabilitation Potential Excellent Analytic Complexity at Evaluation Low Summary OT Impairments Coordination,Bathing Progress Towards Goals Progressing Toward Goals Assessment Summary Pt completely independent for ADL and mobility needs in the room, but did not try showering yet. Pt having slight decrease peripheral vision left eye> right eye, and decrease in speed for FMS. Pt intact for his cognition and well aware to drive with a friend and to be sure to compensate to look left while driving. Pt scored 62 seconds on [place] Making Part B which implies normal for visual attention, speed of processing, mental flexibility, executive functioning, and task switching. Goals Bathing Goal Independent Days to Meet Goals 1 Frequency of Treatment Frequency Of Treatment Once a Day Treatment Plan OT Treatment Plan ADL Training,Vision Retraining ,Patient/Family Education, Discharge Planning Discharge Recommendations OT Discharge Recommendations Home Transportation Needs at Discharge Private Vehicle
[2024-04-25 12:00] VITALS: BP 115/63; PULSE 70; RESP 16; TEMP 36.2; O2SAT 96
--- NOTE | 2024-04-25 13:13 | PT.IIE ---
Current Diagnoses Cerebral infarction, unspecified (04/24/24) Surgical History (Last Reviewed 04/24/24 @ 15:43 by Jhon Hopkins MD) History of tonsillectomy Medical History (Last Reviewed 04/24/24 @ 15:43 by Jhon Hopkins MD) Patient denies medical problems Physical Therapy Inpatient Evaluation/Re-Eval M1 PT/OT-IP Prior Functional Status Start: 04/25/24 11:34 Freq: NEEDED Status: Active Protocol: Document 04/25/24 12:50 [facility] (Rec: 04/25/24 13:13 [facility] [id number]) Medical Review Prior Functional Status Medical History Reviewed Yes Diet/Fluid Consistency Regular Communication Independent Mobility and Gait Independent with no device. 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 Social History Household Members none Living Arrangements RV Number of Stairs To Enter/Railing? Pt lives in a trailer with 2 steps to enter and no rails. Additional Social History Comment Pt has a composting toilet and washes off in the shop at work. M2 PT-IP Current Condition Start: 04/25/24 08:18 Freq: NEEDED Status: Active Protocol: Document 04/25/24 12:50 [facility] (Rec: 04/25/24 13:13 [facility] [id number]) Physical Therapy Current Condition Current Condition Evaluation Date 04/25/24 Treatment Diagnosis Vision changes, right occipital infarct M3 PT-IP Subjective Start: 04/25/24 08:18 Freq: NEEDED Status: Active Protocol: Document 04/25/24 12:50 [facility] (Rec: 04/25/24 13:13 [facility] [id number]) Subjective Physical Therapy Visit Type Type Initial Evaluation Visit Start Time 12:50 Visit Stop Time 13:00 Number of BIOFUEL[employer] PRODUCT MANAGER Visits 0 Physical Therapy Visit Comments Patient Comments Agreeable to PT. Therapy Pain Assessment Pain When Pain Assessed At Rest Pain Present Pain Present Denied Pain M4 PT-IP Mobility and Gait Start: 04/25/24 08:18 Freq: NEEDED Status: Active Protocol: Document 04/25/24 12:50 [facility] (Rec: 04/25/24 13:13 [facility] [id number]) PT-Bed Mobility Assessment Rolling Level of Assist Independent Supine to Sit Supine to Sit Independent Scooting Scooting to Edge of Bed Independent Scooting Up and Down in Bed Independent PT-Transfer Assessment Sit to and From Stand Sit to and from Stand Independent Equipment Transfer Assistive Device None Orthotic/Prosthetic Devices or Brace: No Transfers Transfer Destination Bed Transfer Technique Ambulation Transfer Ability Level of Assist Independent Gait Assessment Gait Gait Assistance Required: Independent,Standby Assistance Distance (Feet) 100 Able to Maintain Weight Bearing Status Yes During Gait Assistive Devices Assistive Device None Orthotic/Prosthetic Devices or Brace: No Gait Deviations General Gait Pattern Within Normal Limits Factors Limiting Gait Function Factors Limiting Gait Function Poor Balance,Poor Safety Awareness Comments Gait Comments I gait 100'x2 and pt does require SBA for balance challenges including gait with EC. Pt reports decreased visual field to his left with looking straight ahead and so ed pt that he will have to turn his head to assist with visual scanning Stair Climbing Assessment Evaluation Level of Assist On Stairs Standby Assistance Devices Stair Climbing Assistive Devices None Technique/Endurance Stair Climbing Direction Ascend and Descend Stair Climbing Technique Step Over Step Number of Steps Climbed 3 Query Text: Stair Climbing Set # Repetitions (reps) 1 PT-Balance Assessment Sitting Balance and Reactions Static Sitting Balance Ability Normal Dynamic Sitting Balance Ability Normal Standing Balance and Reactions Static Standing Balance Ability Normal Dynamic Standing Balance Ability Good Device Used None M5 PT-IP Objective Assessments Start: 04/25/24 08:18 Freq: NEEDED Status: Active Protocol: Document 04/25/24 12:50 [facility] (Rec: 04/25/24 13:13 [id number]) Orientation Orientation/Cognition Level of Alertness Alert Language Function Ability No Deficits Noted Safety Awareness Decreased Safety Awareness Memory Description No Deficits Noted Gross Range of Motion Upper Extremity ROM Impairments Defer to OT Lower Extremity ROM Assessment Within Functional Limits Strength Lower Extremity Strength Assessment Within Functional Limits Coordination Assessment Gross Coordination Gross Coordination WNL Assessment Foot Tapping Test Normal Performance Heel on Rankin Test Normal Performance Sensation Assessment Sensation Gross Sensation WNL Muscle Tone Muscle Tone WNL Yes Other Assessments Other Other Assessments Decreased visual awareness left lower quadrant M6 PT-IP Treatment Start: 04/25/24 08:18 Freq: NEEDED Status: Active Protocol: Document 04/25/24 12:50 [facility] (Rec: 04/25/24 13:13 [id number]) Physical Therapy Treatment Education Education Provided Safety Other Treatments Other Treatment Performed Ed pt about turning head to help scan with mobility and other visual tasks M7 PT-IP Assessment and Plan Start: 04/25/24 08:18 Freq: NEEDED Status: Active Protocol: Document 04/25/24 12:50 [facility] (Rec: 04/25/24 13:13 [facility] [id number]) PT Summary Assessment and Plan Potential Rehabilitation Potential Excellent Status of Condition at Evaluation Evolving Summary Impairments Balance Progress Towards Goals Progressing Toward Goals,Safe For Discharge Assessment Summary Pt is a 73 y/o male presenting with vision changes after right occipital stroke. He is I with gait and has some balance challenges with more difficult balance tasks. PT ed pt about turning head to help with visual scanning since he has reduce left lower quadrant/left visual field reduction at this time. No further acute PT needs. 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 Frequency of Treatment Frequency Of Treatment Discharge Weight Bearing Status Weight Bearing Status Weight Bear as Tolerated Recommendations To Nursing Amount of Assist Needed Standby Assistance Discharge Recommendations PT Discharge Recommendations Home with Assistance Transportation Needs at Discharge Private Vehicle
--- NOTE | 2024-04-25 13:47 | P.DS_ITS ---
History of Present Illness History of Present Illness Chief complaint: funny colors in vision Narrative: From ED doctor: 73-year-old male with no reported medical issues, patient states that he woke up yesterday had a loss of his vision in his left side. Patient states they noticed some color changes throughout the day. States vision has not improved he was seen here in the emergency department had head and neck CT angio labs and elected to return home and follow up with Ophthalmology. Was seen by ophthalmology who confirmed what sounds like a left homonymous hemianopsia on exam and told to return for brain MR. Patient states he had a little bit of a mild headache yesterday. States that has not improved. He denies any numbness tingling or weakness no difficulty with speech, no facial droop no difficulty with movement. States symptoms have resolved but have not worsened. He states no daily medications, had hernia repair several years ago. No known drug allergies. Denies any regular tobacco, alcohol or recreational drugs. Is not established with a primary care physician. On Anticoagulants: No Additional information: Symptoms began on Wednesday. He had a mild right posterior headache at that time. No recent head trauma. No history of stroke, diabetes, hypertension, or hyperlipidemia. No history of smoking. He did also have visual flashing in the left lower quadrants as well as intermittent geometric shapes and vivid colors. He was seen in the emergency department with a negative CT brain and a CTA revealing a right carotid dissection without thrombosis. Ultimately he was discharged yesterday and went to the eye doctor today who diagnosed day lower quadrant hemianopsia. The patient returned to the emergency department where MRI revealed a right occipital infarct x2. He was mildly hypertensive in the emergency department but this is improved to 132/80. He was no headache. He has no history of migraine syndromes. He was no other symptoms other than his visual field cut and other visual abnormalities noted. His pupils are asymmetric with the right being quite dilated, he was dilated at the eye doctor today. Discharge Providers Provider Date of admission: 04/24/24 15:29 Discharge Date: 04/25/24 Consults: 04/24/24 15:39 Consult to Discharge Planning Routine Comment: Consult to Occupational Therapy Evaluate & Treat Comment: Physician Instructions: Evaluate and treat Consult to Physical Therapy Evaluate & Treat Comment: Physician Instructions: Evaluate and Treat Consult to Speech Therapy Evaluate & Treat Comment: Physician Instructions: Evaluate and treat Discharge provider: Jhon Hopkins MD Summary Hospital Course Discharge Diagnosis: 1. 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 2. Right internal carotid artery dissection, present on admission and active. 3. Possible untreated hypertension, present on admission and active. 4. Chronic systolic dysfunction, present on admission and active. Hospital Course: He was admitted with 2 confirmed right occipital hemic infarcts. The emerged and discuss this with neuro recommended 20 dual antiplatelet therapy followed by monotherapy and aspirin. An echo read reveals a modestly reduced EF of 35-40% (and no reported WMA). He did well with speech and physical therapy in the day of discharge. He was only deficit is his left lower quadrant field cut. 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 He was a follow up appointment scheduled and will require referral to Cardiology for further evaluation of his systolic heart failure. The patient will likely need stress testing at some point. He has had no cardiac symptoms and has no cardiac history. Status at Discharge Cognitive/behavioral status at discharge: at baseline, oriented Functional status at discharge: independent ambulation Overall status at discharge: patient is back to baseline Time Spent with Patient Time spent: Greater than 30 minutes Exam Vital Signs (past 8 hours): - 04/25/24 08:00 04/25/24 12:00 Temperature 97.8 F 97.1 F L Pulse Rate 63 70 Respiratory Rate 17 16 Blood Pressure 120/75 115/63 Pulse Oximetry 96 96 Oxygen Flow Rate 0 Oxygen Delivery Method Room Air Oxygen Flow Rate 0 Narrative Exam Narrative: NAD, alert and oriented. Fluent speech. Lungs are clear, normal rate and effort. Heart is regular, no murmur gallop or rub. Abdomen is soft, non distended. Extremities are free of edema. Left lower quadrant field cut, quadrant anopsia Objective ECG Impression: ntervals [place] Rate: 56 P: 4 LA: 158 QRS: 11 QRSD: 90 T: 2 QT: 412 QTc: 397 Interpretive Statements Sinus bradycardia with sinus arrhythmia Imaging Multiple studies:: Radiologist's impression: Brain MRI: Two regions of acute infarct in the right occipital lobe. Embolic source is a consideration. Brain CT April 23: No acute intracranial pathology. No acute intracranial hemorrhage is seen. Head and neck CTA April 23: No significant intracranial arterial abnormality is seen. 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 Please correlate with known patient history and any prior outside imaging. ECHO: 1) Normal left ventricular thickness and size with moderately reduced systolic function (EF 35-40%). 2) Normal right ventricular size and function. 3) No significant valvular abnormalities. 4) No prior Echo available for comparison. Labs 04/25/24 04:14 04/25/24 04:14 Labs: Laboratory Results - last 24 hr 04/24/24 04/25/24 13:20 04:14 WBC 5.0 RBC 4.31 L Hgb 13.5 Hct 40.1 L MCV 93.2 MCH 31.3 MCHC 33.6 RDW 14.0 Plt Count 184 Neut % (Auto) 47.5 L Lymph % (Auto) 39.8 [place] % (Auto) 8.5 Eos % (Auto) 3.9 Baso % (Auto) 0.3 Neut # (Auto) 2400 Lymph # (Auto) 2000 [place] # (Auto) 400 Eos # (Auto) 200 Baso # (Auto) 0 PT 12.0 INR 1.0 APTT 31 Sodium 138 138 Potassium 4.5 4.3 Chloride 106 106 Carbon Dioxide 29 27 BUN 20 17 Creatinine 0.78 0.83 Estimated GFR > 60 > 60 BUN/Creatinine Ratio 25.6 H 20.5 Glucose 97 92 Hemoglobin A1c 5.6 Calcium 8.8 8.8 Magnesium 2.1 Total Bilirubin 0.6 AST 33 ALT 16 Alkaline Phosphatase 52 Total Creatine Kinase 70 Troponin I < 0.012 NT-Pro-B Natriuret Pep 125 H Total Protein 6.8 Albumin 3.9 Globulin 2.9 Albumin/Globulin Ratio 1.3 Lipase 32 TSH 1.54 PFSH Medical History Patient denies medical problems Surgical History History of tonsillectomy Social History household members: none Smoking Status: Never smoker Discharge Plan Discharge Plan Patient Disposition: Home Provider Discharge Comment: Stable for discharge home with medical therapy for stroke and depressed systolic dysfunction. Discharge orders & Medications Prescriptions: New atorvastatin 20 mg Tablet 80 mg PO BEDTIME Qty: 30 11RF clopidogrel 75 mg Tablet 75 mg PO DAILY Qty: 21 0RF aspirin 81 mg Tablet,Delayed Release (Dr/Ec) 81 mg PO DAILY Qty: 30 11RF metoprolol succinate 25 mg tablet extended release 24 hr 12.5 mg PO DAILY Qty: 30 3RF Entresto 24-26 mg tablet 1 tab PO BID Qty: 60 2RF Medication counseling provided by Pharmacist: No Follow up/Referrals: Lisa Kat DO [Physician] - 05/02/24 10:15 am (Appt:05/02 @ 10:15 please arrive 15 min prior to scheduled appointment time @ [address] ) Discharge Health Status Multidrug resistant organism: No MDRO Diet/Activity/Treatments Diet: Diet as Tolerated Visit Report/Discharge Packet Instructions: Ischemic Stroke, DI for Heart Failure, Lifestyle Habits May Lower Lifetime Risk of Heart Failure in Men, Clopidogrel, Valsartan and Sacubitril Stand Alone Forms: Patient Portal/API, Stroke Signs & Symptoms Discharge Data Attending Provider: Jhon Hopkins Admit Date/Time: 04/24/24 15:29 Quality VTE Deep Vein Thrombosis/Pulmonary Embolism Present on Admission: No
== END 2024-04-25 14:46 | disposition home or self-care (01) ==
LOC: ED 15:23 → AC 04-25 06:30
PROVIDERS: Admitting Provider Hospitalist; Emergency Provider Emergency Medicine; Referring Provider Emergency Medicine; Visit Provider Hospitalist
DX: I63.89 Other cerebral infarction (principal); I77.71 Dissection of carotid artery; R29.701 NIHSS score 1; I50.20 Unspecified systolic (congestive) heart failure
CPT/HCPCS: 36415; 70551; 80048; 80053; 82550; 83036; 83690; 83735; 83880; 84443; 84484; 85025; 85610; 85730; 87040; 92523; 93005; 93306; 96372; 97161; 97166; 97530; 99284; G0378; J1644

== ENCOUNTER → 2024-05-09 07:22 | Outpatient (CLI) | payer MEDICARE, SELFPAY ==
[2024-04-24 16:57] VITALS: BMI 21.0
[2024-05-09 08:21] LABS: Hemoglobin A1C% w Est Avg Glu 5.5 % (4.0-6.0)
[2024-05-09 09:14] LABS: Prostate Specific Antigen Scrn 3.21 ng/mL (0.1-4.0)
== END ==
PROVIDERS: PCP Family Medicine; Referring Provider Family Medicine; Visit Provider Family Medicine
DX: Z12.5 Encounter for screening for malignant neoplasm of prostate (principal); Z86.79 Personal history of other diseases of the circulatory system; I50.22 Chronic systolic (congestive) heart failure; I10 Essential (primary) hypertension; R35.1 Nocturia; Z86.73 Personal history of transient ischemic attack (TIA), and cerebral infarction without residual deficits
CPT/HCPCS: 36415; 83036; G0103

== ENCOUNTER → 2024-05-24 07:46 | Outpatient (CLI) | payer MEDICARE, SELFPAY ==
[2024-04-24 16:57] VITALS: BMI 21.0
--- NOTE | 2024-05-24 07:47 | DI.NM.S_ITS ---
PROCEDURE: NM EXERCISE TREADMILL NON NUC COMPARISON: None. INDICATIONS: CVA FINDINGS: Rest ECG sinus rhythm. Ashvin protocol 10:18, maximum heart rate 160 bpm (108% peak predicted), maximum blood pressure 160/82, 11 METS, JOSE GUADALUPE -50%. Exercise ECG sinus tachycardia, no ST segment changes or arrhythmia. Occasional PVCs noted. The patient did not complain of exercise-induced chest discomfort. IMPRESSION: Low risk study. No evidence of exercise-induced ischemia or arrhythmia. Normal hemodynamic response. Excellent exercise capacity. Dictated by: Melissa Torres D.O. on 05/24/2024 at 16:18 Approved by: Melissa Torres D.O. on 05/24/2024 at 16:20
== END ==
PROVIDERS: PCP Family Medicine; Referring Provider Family Medicine; Visit Provider Family Medicine
DX: Z86.73 Personal history of transient ischemic attack (TIA), and cerebral infarction without residual deficits (principal); Z09 Encounter for follow-up examination after completed treatment for conditions other than malignant neoplasm
CPT/HCPCS: 93017

== ENCOUNTER → 2024-10-28 07:39 | Outpatient (CLI) | payer MEDICARE, SELFPAY ==
[2024-10-28 09:14] LABS: Alanine Aminotransferase 32 IU/L (<50); Albumin 4.1 g/dL (3.5-5.0); Albumin Globulin Ratio 1.6 (1.0-2.8); Alkaline Phosphatase 51 U/L (38-126); Aspartate Aminotransferase 37 IU/L (17-59); BUN Creatinine Ratio 18.7 (6-22); Bilirubin Total 0.7 mg/dL (0.2-1.3); Blood Urea Nitrogen 17 mg/dL (9-20); Calcium 9.2 mg/dL (8.4-10.2); Carbon Dioxide 30 mmol/L (22-32); Chloride 103 mmol/L (98-107); Cholesterol 108 mg/dL (140-199); Estimated Glomerular Filt Rate > 60 mL/min (>60); Globulin 2.6 g/dL (1.7-4.1); Glucose 88 mg/dL (80-110); HDL Cholesterol 58 mg/dL (40-60); HEMOLYSIS < 15 (0-50); LDL Cholesterol Calculated 45 mg/dL (<100); Potassium 5.1 mmol/L (3.4-5.1); Sodium 138 mmol/L (137-145); Total Protein 6.7 g/dL (6.3-8.2); Triglycerides 25 mg/dL (35-150)
== END ==
PROVIDERS: PCP Family Medicine; Referring Provider Family Medicine; Visit Provider Family Medicine
DX: I50.20 Unspecified systolic (congestive) heart failure (principal); Z86.79 Personal history of other diseases of the circulatory system; I50.22 Chronic systolic (congestive) heart failure; Z86.73 Personal history of transient ischemic attack (TIA), and cerebral infarction without residual deficits; Z79.899 Other long term (current) drug therapy; I11.0 Hypertensive heart disease with heart failure
CPT/HCPCS: 36415; 80053; 80061

== ENCOUNTER → 2024-11-13 14:56 | Outpatient (CLI) | payer MEDICARE, SELFPAY ==
--- NOTE | 2024-11-13 14:57 | DI.CT.S_ITS ---
PROCEDURE: CT ANGIO HEAD AND NECK INDICATIONS: f/u: carotid dissection TECHNIQUE: After the administration of intravenous contrast, 1 mm thick sections acquired from the aortic arch through the [place] of [place]. 3-dimensional prtrpoc-fjjekztpc-uizpktkguu (MIP) and/or volume rendering reformats were acquired of the central intracranial vasculature and neck separately. For radiation dose reduction, the following was used: automated exposure control, adjustment of mA and/or kV according to patient size. COMPARISON: [facility], MR, MR HEAD/BRAIN WO CON, 04/24/2024, 11:58. [facility], CT, CT ANGIO HEAD AND NECK, 04/23/2024, 21:15. FINDINGS: Image quality: Diagnostic. BRAIN: The ventricular system and cortical sulci demonstrate atrophy, consistent for the patient's stated age. There are areas of hypodensity within the periventricular and subcortical white matter. There is no acute intra-or extra axial fluid collection. No acute hemorrhage, mass lesion or midline shift. Brainstem is unremarkable. Globes are symmetrical. Sinuses are aerated. Osseous structures are intact. HEAD CT ANGIOGRAPHY: Anterior circulation: Intracranial internal carotid arteries are normal in size and flow. The flow within the paired anterior cerebral arteries is normal and symmetric. The flow within the middle cerebral arteries is normal and symmetric. The anterior communicating artery is seen. No aneurysms are seen. Posterior circulation: Visualized portions of the vertebral arteries demonstrate normal caliber, and join to form a normal appearing basilar artery. Flow within the posterior cerebral arteries is normal and symmetric. No aneurysms are seen. NECK CT ANGIOGRAPHY: Carotid system: The great vessels demonstrate a conventional anatomy as they arise from the aortic arch. The origins of the common carotid arteries appear patent. The common carotid arteries demonstrate normal caliber and courses. The bifurcation regions are both widely patent. As identified on prior exam, there is dissection involves within the right internal carotid artery within the cervical segment. It is unchanged compared to prior exam. No new areas of dissection are identified. Posterior circulation: The origins of the vertebral arteries both appear widely patent. The more superior extracranial portions of both vertebral arteries also demonstrate normal courses and calibers. They join to form a normal appearing basilar artery. Soft tissues: Visualized neck soft tissues demonstrate no suspicious abnormalities. Bones: No suspicious bony lesions. Visualized cervical spine appears normally aligned. 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 Any quantitative measurements of stenosis were performed using NASCET criteria. Dictated by: Odessa Perez M.D. on 11/13/2024 at 16:35 Approved by: Odessa Perez M.D. on 11/13/2024 at 16:39
--- NOTE | 2024-11-13 14:57 | DI.RAD.S_ITS ---
PROCEDURE: XR CHEST 1V INDICATIONS: f/u: Relatively long segment dissection TECHNIQUE: One view of the chest was acquired. COMPARISON: [facility], CR, XR CHEST 1V, 04/23/2024, 21:27. FINDINGS: Heart, mediastinum and pulmonary vascular: Heart is normal in size and configuration. Tortuous descending thoracic aorta noted-remaining mediastinum is normal Pulmonary vascular is normal. Lungs: Clear Pleural spaces: Normal-no effusions or pneumothorax. Bones and soft tissues: Normal IMPRESSION: No acute cardiopulmonary disease. Specific evaluation of a known thoracic aortic dissection is most accurately assessed with CT angiography of the thoracic and abdominal aorta Dictated by: Vadim Conde M.D. on 11/14/2024 at 11:40 Approved by: Vadim Conde M.D. on 11/14/2024 at 11:41
--- NOTE | 2024-11-13 14:57 | DI.ECHO.S_ITS ---
[facility] : : [id number] : [place] : : [id number] : : Phone: [phone] Echocardiogram Report + + :Name: ALAN GUERRERO Study Date: 11/13/2024 Height: 70 in : :[facility] ReadingLocation: Weight: 165 lb : : Gender: Male BSA: 1.9 m2 : :: 1950 Age: 74 yrs BP: 114/79 mmHg: :Reason For Study: CONGESTIVE HEART FAILURE : :Ordering Physician: MICHELLE, : :FLAKO Performed By: Luke Segal : :Referring: FLAKO MARTINEZ : + + Interpretation Summary The ejection fraction is estimated to be 50-55%. Diastolic function could not be accurately assessed due to contradictory data. The left atrial size is normal. The right ventricle is borderline dilated. The right ventricular systolic function is normal. There is mild to moderate mitral regurgitation. There is mild to moderate tricuspid regurgitation. The right ventricular systolic pressure is estimated to be at least 37 mmHg based on an estimated right atrial pressure of 3 mm Hg. Compared to the prior study 04/24/2024, the ejection fraction has increased however the AV valvular regurgitation has also increased. Procedure: A two-dimensional transthoracic echocardiogram with color flow and Doppler was performed. The study quality was technically good. Comparison is made with the echocardiogram of 04/24/2024. The patient was in normal sinus rhythm during the exam. Left Ventricle: The left ventricle is normal in size. There is normal left ventricular wall thickness. There is no ventricular septal defect visualized. The ejection fraction is estimated to be 50-55%. There are no focal wall motion abnormalities. Diastolic function could not be accurately assessed due to contradictory data. Right Ventricle: The right ventricle is borderline dilated. The right ventricular systolic function is normal. Atria: The left atrial size is normal. The right atrium is mildly dilated. There is no Doppler evidence for an interatrial shunt. Mitral Valve: The mitral valve leaflets appear normal. There is no evidence of stenosis, fluttering, or prolapse. There is mild to moderate mitral regurgitation. Aortic Valve: The aortic valve is trileaflet. The aortic valve opens well. There is no aortic valve stenosis. There is trace aortic regurgitation. Tricuspid Valve: The tricuspid valve leaflets are thin and pliable. There is mild to moderate tricuspid regurgitation. The right ventricular systolic pressure is estimated to be at least 37 mmHg based on an estimated right atrial pressure of 3 mm Hg. Pulmonic Valve: The pulmonic valve leaflets are thin and pliable; valve motion is normal. There is no pulmonic valvular regurgitation. Great Vessels: The aortic root is normal size. The dimensions of the ascending aorta are normal. The pulmonary artery is normal size. The IVC is of normal diameter and collapses greater than 50% with a sniff. This suggests a low right atrial pressure of 3 mm Hg. Pericardium/ Pleura There is no pericardial effusion. There is no pleural effusion. MMode/2D Measurements & Calculations LVIDd: 4.8 cm LVOT diam: 2.2 cm LVIDs: 3.7 cm Ao root diam: 3.3 cm FS: 22.5 % asc Aorta Diam: 3.2 cm EPSS: 0.58 cm Ao Arch Diam (Prox Trans): 1.6 cm IVSd: 0.93 cm LVPWd: 1.0 cm LV arreola. diameter/BSA (cm/m^2): 2.5 LV sys. diameter/BSA (cm/m^2): 1.9 LA A2 area: 17.2 cm2 RA long axis: 5.0 cm LA A4 area: 17.4 cm2 RA area: 20.1 cm2 LA length (vol): 4.9 cm RA vol: 68.2 ml LA vol: 52.2 ml RA : 35.5 ml/m2 LA vol index: 27.1 ml/m2 IVC diam: 1.8 cm RVD1 (basal): 4.2 cm RVD2 (mid): 4.0 cm TAPSE: 2.3 cm Doppler Measurements & Calculations Ao V2 max: 120.0 cm/sec LVOT Max Romulo: 87.0 cm/sec Ao V2 mean: 84.2 cm/sec LV V1 max P.0 mmHg Ao max P.8 mmHg LV V1 VTI: 18.5 cm Ao mean P.1 mmHg ANITA(I,D): 2.6 cm2 Ao V2 VTI: 27.6 cm ANITA(V,D): 2.8 cm2 sev ratio: 0.67 ANITA indexed to BSA (cm^2/m^2): 1.4 MV E max romulo: 81.0 cm/sec TR max romulo: 293.1 cm/sec MV A max romulo: 62.5 cm/sec TR max P.4 mmHg MV E/A: 1.3 PA V2 max: 57.6 cm/sec Med Peak E' Romulo: 5.7 cm/sec PA V2 mean: 40.6 cm/sec E/E' med: 14.2 PA mean P.73 mmHg Lat Peak E' Romulo: 9.9 cm/sec PA pr(Accel): 41.3 mmHg E/E' lat: 8.2 E/e' average: 11.2 MV dec time: 0.13 sec SV(LVOT): 71.6 ml Reading Physician:07:57 PM
== END ==
PROVIDERS: PCP Family Medicine; Referring Provider Family Medicine; Visit Provider Family Medicine
DX: I50.22 Chronic systolic (congestive) heart failure (principal); I77.71 Dissection of carotid artery; I70.0 Atherosclerosis of aorta; Z86.79 Personal history of other diseases of the circulatory system; I11.0 Hypertensive heart disease with heart failure
CPT/HCPCS: 70496; 70498; 71045; 93306; Q9967

== ENCOUNTER → 2025-01-02 11:07 | Outpatient (CLI) | payer MEDICARE, SELFPAY ==
[2025-01-02 12:15] LABS: Hematocrit 41.7 % (41-53); Hemoglobin 13.9 g/dL (13.5-17.5); Mean Corpuscular HGB Conc 33.4 % (30-36); Mean Corpuscular Volume 95.8 fL (80-100); Platelet Count 226 X10^3/uL (150-400); Red Blood Cell Count 4.35 X10^6/uL (4.5-5.9); Red Cell Distribution Width 13.7 % (11.6-14.8); White Blood Cell Count 4.4 X10^3/uL (4.5-11.0)
[2025-01-02 12:47] LABS: Alanine Aminotransferase 26 IU/L (<50); Albumin 4.2 g/dL (3.5-5.0); Albumin Globulin Ratio 1.6 (1.0-2.8); Alkaline Phosphatase 59 U/L (38-126); Aspartate Aminotransferase 37 IU/L (17-59); BUN Creatinine Ratio 17.2 (6-22); Bilirubin Total 0.8 mg/dL (0.2-1.3); Blood Urea Nitrogen 15 mg/dL (9-20); Calcium 9.2 mg/dL (8.4-10.2); Carbon Dioxide 28 mmol/L (22-32); Chloride 104 mmol/L (98-107); Estimated Glomerular Filt Rate > 60 mL/min (>60); Globulin 2.6 g/dL (1.7-4.1); Glucose 89 mg/dL (70-99); HEMOLYSIS < 15 (0-50); Potassium 4.9 mmol/L (3.4-5.1); Sodium 138 mmol/L (137-145); Total Protein 6.8 g/dL (6.3-8.2)
== END ==
LOC: LAB 11:10
PROVIDERS: PCP Family Medicine; Referring Provider Nurse Practitioner; Visit Provider Nurse Practitioner
DX: I50.20 Unspecified systolic (congestive) heart failure (principal)
CPT/HCPCS: 36415; 80053; 85027

== ENCOUNTER → 2025-05-08 19:28 | Outpatient (CLI) | payer MEDICARE, SELFPAY ==
--- NOTE | 2025-05-08 19:54 | DI.MRI.S_ITS ---
PROCEDURE: MR HEAD/BRAIN WO/W CON INDICATIONS: hx of occipital infarct; vision/sensory changes TECHNIQUE: Noncontrast axial T1 spin echo, axial T2 fast spin echo, sagittal and axial FLAIR, coronal T2 fast spin echo, axial gradient echo, axial diffusion and ADC through the brain. After the administration of contrast, axial and coronal and sagittal T1 spin echo with fat saturation through the brain. COMPARISON: [facility], CT, CT HEAD/BRAIN WO CON, 04/26/2025, 15:41. [facility], MR, MR HEAD/BRAIN WO CON, 04/24/2024, 11:58. FINDINGS: Image quality: Excellent. CSF spaces: Basal cisterns are patent. No extra-axial fluid collections. Ventricles are normal in size and shape. Brain: Small area of encephalomalacia within the right occipital lobe from prior infarct. No midline shift. No intracranial bleeds or masses. No abnormal intracranial enhancement. There is cerebral volume loss for age. There is periventricular white matter chronic small vessel ischemic change. The brainstem appears normal. Diffusion-weighted images demonstrate no acute infarct. No chronic ischemic insults. Normal intravascular flow voids are present. Stable small focus of susceptibility artifact the right frontal lobe, may represent sequela of prior chronic hypertensive microhemorrhage versus small cavernoma. Skull and face: Calvarial marrow is normal in signal. Orbits appear normal. Left lens replacement. Sinuses: Sinuses and mastoids appear clear. IMPRESSION: No acute or subacute infarct. No acute intracranial abnormalities or abnormal intracranial enhancement. 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 Mild age-related global volume loss and minimal chronic microvascular ischemic changes. Dictated by: Mike Shafer M.D. on 05/09/2025 at 8:07 Approved by: Mike Shafer M.D. on 05/09/2025 at 8:12
== END ==
LOC: MRI 19:28
PROVIDERS: PCP Family Medicine; Referring Provider Family Medicine; Visit Provider Family Medicine
DX: I63.9 Cerebral infarction, unspecified (principal); G93.89 Other specified disorders of brain; H53.9 Unspecified visual disturbance; Z86.79 Personal history of other diseases of the circulatory system
CPT/HCPCS: 70553; A9579

== ENCOUNTER → 2025-08-28 17:11 | Outpatient (CLI) | payer MEDICARE, SELFPAY ==
[2025-08-28 19:18] LABS: Prostate Specific Antigen 2.86 ng/mL (0.10-4.00)
== END ==
PROVIDERS: PCP Family Medicine; Referring Provider Urology; Visit Provider Urology
DX: Z12.5 Encounter for screening for malignant neoplasm of prostate (principal); N40.1 Benign prostatic hyperplasia with lower urinary tract symptoms
CPT/HCPCS: 36415; 84153